=== PATIENT | male | born 1955 | race Caucasian/White ===

== ENCOUNTER 2017-12-17 16:10 | Emergency (ER) | payer MEDICAID, SELFPAY ==
[2017-12-17 16:12] VITALS: BP 134/71; PULSE 62; RESP 18; TEMP 36.6; O2SAT 98; BMI 34.9
--- NOTE | 2017-12-17 16:16 | ED.DCSUM_ITS ---
- ER Visit Summary Date of Service: 12/17/17 Chief Complaint: Right ankle pain/left buttock pain History of Present Illness: The patient is a 62 M who presents with the above symptoms. The patient was mowing his yard when he stepped in a hole. He states that his right foot went down into a hole and twisted on the way down. He also landed on his left buttock. He called EMS to help him get out. He has a history of dropfoot on the right. He was able to ambulate to the ambulance Physical ExaminatioVital signs reviewed. Right ankle exam reveals no tenderness to palpation. He has no swelling. He has full range of motion with pain. He does have some left buttock tenderness to palpation. No bony tenderness. He did ambulate from the EMS cot to the bed without difficulties. Test Results: Right ankle x-ray reveals a sprain but no fractures Emergency Department Course and Treatment: Patient was given Tylenol. I do not feel he requires x-rays of his buttock area because this is muscular in nature. His ankle has no fractures. He was able to ambulate on his own. He will continue Tylenol and ice at home. Treatment Plan: [] Disposition: Discharge Impression: Right ankle sprain, gluteal contusion This note was generated with Droid system master dictation software. It may contain incorrect words, spelling, and punctuation that were not noted in review of the chart prior to signing ED Disposition - Plan for ED Patient: Chief Complaint: Lower Extremity Injury Referrals: Khang Mendoza MD [Primary Care Provider] -
[2017-12-17] MEDS: Acetaminophen 500 MG Tablet 1000 MG PO (16:17)
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
--- NOTE | 2017-12-17 17:17 | ED.DEP ---
ED Disposition - Plan for ED Patient: Disposition: Home or Assisted Living Chief Complaint: Lower Extremity Injury Instructions: ED Sprain Ankle W X Ray Referrals: Khang Mendoza MD [Primary Care Provider] -
[2017-12-17 17:27] VITALS: RESP 18
== END 2017-12-17 17:28 | disposition home or self-care (01) ==
PROVIDERS: Emergency Provider Emergency Medicine; Family Provider Family Medicine; PCP Family Medicine
DX: S93.401A Sprain of unspecified ligament of right ankle, initial encounter (principal); S30.0XXA Contusion of lower back and pelvis, initial encounter; E11.9 Type 2 diabetes mellitus without complications; I10 Essential (primary) hypertension; Z79.84 Long term (current) use of oral hypoglycemic drugs; Z79.899 Other long term (current) drug therapy; X50.1XXA Overexertion from prolonged static or awkward postures, initial encounter; Y93.H2 Activity, gardening and landscaping; Y92.007 Garden or yard of unspecified non-institutional (private) residence as the place of occurrence of the external cause; Y99.8 Other external cause status
CPT/HCPCS: 73610; 99284

== ENCOUNTER 2018-06-02 20:42 | Emergency (ER) | payer MEDICAID, SELFPAY ==
[2018-06-02 21:08] VITALS: BP 106/60; PULSE 67; RESP 16; TEMP 36.7; O2SAT 97; BMI 34.9
[2018-06-02] MEDS: Ketorolac 30 MG/ML Syringe IM (22:22)
--- NOTE | 2018-06-02 22:45 | ED.VIS.BACK ---
History of Present Illness Chief Complaint: Back Informant: Patient Onset: Weeks - 3 Context: Gradual Onset Narrative: Patient presenting secondary to back pain. Patient reports that he has a long-standing history of back pain, and has a chronic right-sided foot drop secondary to this. Patient states that he has had a gradual onset of worsening pain. Is located in his lower back. There is some radiation down the leg. Patient denies any bowel or bladder incontinence fevers nausea vomiting numbness or new weakness. Patient denies any recent injections or surgeries. Patient takes gabapentin for this, seems to feel that this is not helping. Review of systems otherwise negative. Past Medical History - Allergies and Home Meds Allergies/Adverse Reactions: Allergies No Known Allergies Allergy (Verified 06/02/18 21:09) Primary Care Physician: Diandra Noel NP-C [Primary Care Provider] - Smoking Status: Current some day smoker Review of Systems All systems negative except as indicated Musculoskeletal: Reports: Back pain Neurological: Reports: Weakness - At baseline Physical Exam Vital Signs/Narrative: Vital Signs Temp Pulse Resp BP Pulse Ox 06/02/18 21:08 98.1 F 67 16 106/60 97 General: Well nourished, Well developed Head: Normocephalic, Atraumatic Eyes: Perrl, EOMI ENT: Moist mucous membranes, No rhinorrhea Neck: Supple, Nontender Cardiovascular: Regular rate, Regular rhythm, No murmurs, - - 2+ radial, 2+ DP pulses bilaterally symmetric Respiratory: No distress, CTA bilaterally, Chest nontender Abdomen: Soft, Nontender, Nondistended, Normal bowel sounds. Negative for: Pulsatile mass Back: - - Minimal right sided paraspinal tenderness, no midline tenderness. Straight leg raise negative bilaterally Extremeties: Nontender, No edema Skin: Normal color, No rash Neuro: Alert - 5 out of 5 strength at the hip knee and foot, right sided foot drop which is the patient's baseline, normal sensation over all dermatomes., Oriented, Normal Strength, Normal Sensation, Normal DTR, Normal Gait Reflexes: Right Patellar, Right Achilles. Negative for: Right Clonus, Left Clonus Diagnostic/Tx/Re-eval - Medical Decision Making Patient presented secondary to back pain. Patient does have foot drop on the right but this is chronic. Patient was given Toradol and Flexeril. Repeat evaluation shows significant improvement in the patient able to ambulate. There is no red flag signs or symptoms at this point, I do not believe that he requires neuroimaging or further work-up. Patient was discharged with follow-up with his primary care physician. Disposition: Home ED Disposition - Plan for ED Patient: Disposition: Home or Assisted Living Diagnosis: Acute exacerbation of chronic low back pain Instructions: ED Neck Back Pain General Referrals: Diandra Noel, LOADER ENGINEER-C [Primary Care Provider] - As Needed
== END 2018-06-02 23:19 | disposition home or self-care (01) ==
PROVIDERS: Emergency Provider Emergency Medicine; Family Provider Nurse Practitioner Family; PCP Nurse Practitioner Family
DX: G89.29 Other chronic pain (principal); M54.5 Low back pain; F17.200 Nicotine dependence, unspecified, uncomplicated
CPT/HCPCS: 96372; 99284

== ENCOUNTER 2018-11-08 14:20 | Emergency (ER) | payer MEDICAID, SELFPAY ==
[2018-11-08] VITALS (7 sets, daily range): BP systolic 130–145; BP diastolic 70–89; PULSE 68–71; RESP 16–18; TEMP 36.7; O2SAT 96–98; BMI 34.2
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
[2018-11-08 15:39] LABS: Absolute Lymphocyte Count 0.61 X10^3/uL (0.83-4.51); Absolute Neutrophil Count 4.2 X10^3/uL (2.0-7.7); Basophil# 0.05 X10^3/uL; Basophil% 0.8 % (0-1); Eosinophil# 0.06 X10^3/uL; Hematocrit 40.7 % (40-54); Hemoglobin 13.7 g/dL (13.0-16.5); Lymphocyte # 0.61 X10^3/ul (4.0); Lymphocyte % 10.2 % (19-41); Mean Corp Hgb Conc 33.7 g/dL (32-36); Mean Corpuscular Hgb 33.6 pg (27.0-32.0); Mean Corpuscular Volume 99.8 fL (80-94); Mean Platelet Vol. 11.4 fl (6.2-12.0); Monocyte# 1.05 X10^3/uL; Monocyte% 17.6 % (0-10); NRBC Flagged by Analyzer 0 % (0-5); Neutrophil # 4.18 X10^3/uL (2.7-7.7); Neutrophil % 69.9 % (47-70); Platelet Count 65 K/mm3 (150-450); RBC Distribution Width CV 12.8 % (11.6-14.6); RBC Distribution Width SD 47.3 fl (35.1-43.9); Red Blood Count 4.08 M/mm3 (4.6-6.2)
[2018-11-08 15:43] LABS: Anion Gap 9 (5-15); BUN 12 mg/dL (7-18); BUN/Creat Ratio 11.4 RATIO (10-20); Calcium,Total 9.2 mg/dL (8.5-10.1); Chloride 99 mmol/L (98-107); Creatinine, Serum 1.05 mg/dL (0.70-1.30); EST Glomerular Filtration Rate 76 mL/min (>60); Est Glom Filt Rate - Afr Amer 91 mL/min (>60); Estimated Creatinine Clearance 68.76 ml/min; Glucose 201 mg/dL (74-106); Potassium 4.1 mmol/L (3.5-5.1); Sodium Level 132 mmol/L (136-145)
--- NOTE | 2018-11-08 19:54 | ED.RN ---
PT STATES THROAT IS FEELING A LITTLE BETTER, STILL SORE. VOICE REMAINS HOARSE, VITAL SIGNS STABLE.
--- NOTE | 2018-11-08 20:13 | ED.RN ---
NURSE TO NURSE REPORT CALLED TO [facility] ED TO CARMEL ESPINO. ASKED TO SPEAK TO DR STEWART TO UPDATE PER DR STEWART REQUEST. 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
== END 2018-11-08 20:59 | disposition short-term general hospital (02) ==
PROVIDERS: Emergency Provider Emergency Medicine; Family Provider Nurse Practitioner Family; PCP Nurse Practitioner Family
DX: S10.93XA Contusion of unspecified part of neck, initial encounter (principal); E11.9 Type 2 diabetes mellitus without complications; I10 Essential (primary) hypertension; F17.200 Nicotine dependence, unspecified, uncomplicated; Y04.8XXA Assault by other bodily force, initial encounter; Y93.89 Activity, other specified; Y92.009 Unspecified place in unspecified non-institutional (private) residence as the place of occurrence of the external cause; Y99.8 Other external cause status
CPT/HCPCS: 70491; 71045; 80048; 85025; 99284; Q9967; A4216

== ENCOUNTER 2018-12-06 17:14 | Emergency (ER) | payer MEDICAID, SELFPAY ==
[2018-11-08 14:23] VITALS: BMI 34.2
[2018-12-06 17:16] VITALS: BP 121/83; PULSE 72; RESP 19; TEMP 37; O2SAT 97; BMI 34.2
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
--- NOTE | 2018-12-06 17:29 | EKG12_ITS ---
Test Reason : HEADACHE Blood Pressure : / mmHG Vent. Rate : 068 BPM Atrial Rate : 068 BPM P-R Int : 144 ms QRS Dur : 084 ms QT Int : 420 ms P-R-T Axes : 021 -05 014 degrees QTc Int : 446 ms Normal sinus rhythm Normal ECG Confirmed by KARLA ADAMS ([id number]), senior technical editor SVITLANA NORTH ([id number]) on 12/13/2018 9:03:05 AM Referred By: ARLEEN Confirmed By:KARLA ADAMS
[2018-12-06] MEDS: 0.9% Normal Saline 1,000 ML 150 ML IV (17:47)
[2018-12-06 18:10] LABS: Anion Gap 11 (5-15); BUN 12 mg/dL (7-18); BUN/Creat Ratio 14.2 RATIO (10-20); Calcium,Total 8.8 mg/dL (8.5-10.1); Chloride 98 mmol/L (98-107); Creatinine, Serum 0.85 mg/dL (0.70-1.30); EST Glomerular Filtration Rate 97 mL/min (>60); Est Glom Filt Rate - Afr Amer 117 mL/min (>60); Estimated Creatinine Clearance 84.94 ml/min; Glucose 120 mg/dL (74-106); Potassium 3.5 mmol/L (3.5-5.1); Sodium Level 132 mmol/L (136-145)
[2018-12-06 18:19] LABS: Absolute Lymphocyte Count 0.89 X10^3/uL (0.83-4.51); Absolute Neutrophil Count 4.9 X10^3/uL (2.0-7.7); Basophil# 0.05 X10^3/uL; Basophil% 0.7 % (0-1); Eosinophil# 0.13 X10^3/uL; Eosinophils% 1.8 % (0-5); Hematocrit 36.7 % (40-54); Hemoglobin 12.5 g/dL (13.0-16.5); Lymphocyte # 0.89 X10^3/ul (4.0); Lymphocyte % 12.4 % (19-41); Mean Corp Hgb Conc 34.1 g/dL (32-36); Mean Corpuscular Volume 99.7 fL (80-94); Mean Platelet Vol. 11.5 fl (6.2-12.0); Monocyte# 1.16 X10^3/uL; Monocyte% 16.2 % (0-10); NRBC Flagged by Analyzer 0 % (0-5); Neutrophil # 4.91 X10^3/uL (2.7-7.7); Neutrophil % 68.5 % (47-70); Platelet Count 68 K/mm3 (150-450); RBC Distribution Width CV 13.1 % (11.6-14.6); RBC Distribution Width SD 48.3 fl (35.1-43.9); Red Blood Count 3.68 M/mm3 (4.6-6.2); White Blood Count 7.2 K/mm3 (4.4-11.0)
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
[2018-12-06 18:42] LABS: Salicylate < 1.7 mg/dL (2.8-20.0)
[2018-12-06] MEDS: Acetaminophen 325 MG Tablet 650 MG PO (18:57)
--- NOTE | 2018-12-06 18:58 | ED.DEP ---
ED Disposition - Plan for ED Patient: Instructions: HEADACHE, Unspecified, Tinnitus (Ringing in the Ears), Alcohol Intoxication Referrals: Diandra Noel NP-Valdemar [Primary Care Provider] - Kiet Johnson MD [STAFF PHYSICIAN] - 3-5 Days
--- NOTE | 2018-12-06 18:59 | ED.RN ---
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
[2018-12-06 19:01] VITALS: BP 123/82; PULSE 74; RESP 20; O2SAT 97
--- NOTE | 2018-12-06 19:48 | ED.RN ---
brother agreed to stay with pt for the next 4 hours.
== END 2018-12-06 19:51 | disposition home or self-care (01) ==
LOC: ED 17:35
PROVIDERS: Emergency Provider Emergency Medicine; Family Provider Nurse Practitioner Family; PCP Nurse Practitioner Family
DX: R51 Headache (principal); F10.129 Alcohol abuse with intoxication, unspecified; H93.13 Tinnitus, bilateral; E11.9 Type 2 diabetes mellitus without complications; I10 Essential (primary) hypertension; K21.9 Gastro-esophageal reflux disease without esophagitis; Z72.0 Tobacco use; Z79.4 Long term (current) use of insulin; Z79.899 Other long term (current) drug therapy
CPT/HCPCS: 70450; 80048; 80320; 80329; 84484; 85025; 93005; 96360; 96361; 99285; G0480

== ENCOUNTER 2018-12-30 10:24 | Emergency (ER) | payer MEDICAID, SELFPAY ==
[2018-12-30 10:25] VITALS: BP 158/75; PULSE 69; RESP 16; TEMP 36.7; O2SAT 97; BMI 33.5
[2018-12-30 10:27] VITALS: BP 158/75; PULSE 69; RESP 16; TEMP 36.7; O2SAT 97
[2018-12-30 10:51] VITALS: O2SAT 96
[2018-12-30] MEDS: predniSONE 20 MG Tablet 60 MG PO (11:09)
[2018-12-30 11:17] VITALS: PULSE 68; RESP 20; O2SAT 96
[2018-12-30] MEDS: Ipratropium/Albuterol Sulfate 3 ML AMPUL.NEB INHALATION (11:17)
--- NOTE | 2018-12-30 11:20 | RAD_ITS ---
STUDY: X-RAY CHEST REASON FOR EXAM: Male, 63 years old. Two-week history of cough. TECHNIQUE: PA and lateral views of the chest. COMPARISON: Comparison is made with prior study dated November 08, 2018. FINDINGS: Mild increased markings at the lung bases suggestive of bibasilar atelectasis. There is no demonstrated pleural abnormality. Normal size heart. Normal mediastinum and compa. Normal visualized pulmonary arteries. There is atherosclerotic calcification of the aortic arch with tortuosity. There are diffuse degenerative changes of the visualized thoracic spine. Normal visualized ribs, clavicles, and shoulders. There is no demonstrated abnormality of the visualized soft tissue structures of the upper abdomen. RAD/Chest PA and Lateral IMPRESSION: Mild degree of increased linear markings at the lung bases suggestive of linear atelectasis. Electronically Signed: Mak Scott, at 12:34 EST , Service support ,
--- NOTE | 2018-12-30 11:52 | ED.VISSUMM ---
- ER Visit Summary Date of Service: 12/30/18 Chief Complaint: Cough and shortness of breath History of Present Illness: The patient is a 63 M history of diabetes and hypertension. Patient never been diagnosed with COPD but is a 30+ pack year history of smoking. States the last 2 weeks he had a cough of clear phlegm and some wheezing. Denies chest pain. Subjectively he has had a fever and chills. No vomiting or diarrhea. No leg pain or swelling. No hemoptysis. Physical Examination: Older male vital signs stable afebrile pulse ox 97% on room air no signs of hypoxia. HEENT exam unremarkable. Neck nontender. Lungs dry cough with expiratory wheezing. No rales or rhonchi. No distress. Equal symmetrical. Heart regular rhythm no murmur. Abdomen soft nontender. Extremities moves all 4. Neurovascularly intact motor. Calves are nontender without edema. Neurologically is awake and alert. Test Results: CXR shows chronic changes consistent with COPD but no acute infiltrate read by myself. I did go over the x-ray with patient. He was AP and lateral 2 views. Emergency Department Course and Treatment: Patient treated with DuoNeb aerosol and prednisone. On repeat exam at 1151 he feels better. His wheezing is resolved. Treatment Plan: Prednisone 40 mrem a day for 7 days. I do not feel he needs any antibiotics. Also an inhaler. Follow-up with pulse ox in clinic if not improving. Disposition: Discharge Impression: Acute bronchitis New onset newly diagnosed exacerbation COPD This note was generated with eeGeo dictation software. It may contain incorrect words, spelling, and punctuation that were not noted in review of the chart prior to signing ED Disposition - Plan for ED Patient: Referrals: Diandra Noel, FOUNDATION RELATIONS DIRECTOR-C [Primary Care Provider] -
--- NOTE | 2018-12-30 11:56 | ED.DEP ---
ED Disposition - Plan for ED Patient: Disposition: Home or Assisted Living Instructions: BRONCHITIS, No Antibiotic (Adult), Copd Flare Prescriptions: predniSONE tablet 40 mg PO DAILY 7 Days #7 tab Prescription Printed Albuterol Sulfate [Proventil Hfa] 6.7 gm IH 4X/DAY PRN PRN #1 [email or web address] PRN Reason: Wheezing Prescription Printed Referrals: Diandra Noel, SALESPERSON WOMEN'S DRESSES-C [Primary Care Provider] - 3-5 Days if not improving Additional Instructions: Smoking !! Prednisone 40 miles a day for 1 week. Is a decrease inflammation in your lungs and the wheezing. Also uses inhaler as needed for wheezing and shortness of breath. 1 to 2 puffs every 4-6 hours as needed. Follow-up with your primary care provider if not improving. Return if worse.
== END 2018-12-30 12:14 | disposition home or self-care (01) ==
PROVIDERS: Emergency Provider Emergency Medicine; Family Provider Nurse Practitioner Family; PCP Nurse Practitioner Family
DX: J44.1 Chronic obstructive pulmonary disease with (acute) exacerbation (principal); J44.0 Chronic obstructive pulmonary disease with (acute) lower respiratory infection; E11.9 Type 2 diabetes mellitus without complications; I10 Essential (primary) hypertension; Z79.899 Other long term (current) drug therapy; Z79.4 Long term (current) use of insulin; F17.200 Nicotine dependence, unspecified, uncomplicated
CPT/HCPCS: 71046; 94640; 99251; 99282; G0463

== ENCOUNTER 2019-06-01 18:05 | Inpatient (IN) | payer MEDICARE, MEDICAID, SELFPAY ==
[2019-06-01] VITALS (8 sets, daily range): BP systolic 97–126; BP diastolic 52–98; PULSE 58–68; RESP 18; TEMP 36.4–36.8; O2SAT 96–99; BMI 34.6; BMI 33.0; BMI 33.1
--- NOTE | 2019-06-01 18:10 | EKG12_ITS ---
Test Reason : SYNCOPE Blood Pressure : / mmHG Vent. Rate : 060 BPM Atrial Rate : 060 BPM P-R Int : 152 ms QRS Dur : 088 ms QT Int : 446 ms P-R-T Axes : 043 -03 010 degrees QTc Int : 446 ms Sinus rhythm with occasional Premature ventricular complexes Otherwise normal ECG Confirmed by ESVIN BURKS, ANTONIA ([id number]), features editor WAYLON MATIAS ([id number]) on 06/06/2019 10:56:28 AM Referred By: Alli Mansfield Confirmed By:RADHA MCALLISTER MD
--- NOTE | 2019-06-01 18:26 | ED.VISSUMM ---
- ER Visit Summary Date of Service: 06/01/19 Chief Complaint: Passed out and fell History of Present Illness: The patient is a 64 M history of diabetes, hypertension high cholesterol. States he is on insulin. He states about a month friends. Today he was walking to his refrigerator when he went to open up he passed out fell striking his face on the refrigerator and in the floor. Laceration to his upper lip. Denies other injuries. Prior to the fall he said he felt fine. He denies any headache, neck pain, chest pain or shortness of breath. He is not recently been ill. He denies any nausea, vomiting or diarrhea. No melena. Tetanus is up-to-date within the last 4 years. Physical Examination: Older male no acute distress vital signs are stable afebrile. His initial blood pressure is 107/68. He does not look septic or toxic. He is in no distress. H EENT exam pupils round reactive light. He is a laceration to his upper lip in the midline and is through and through to the oral surface. This will need to be repaired. There is small amount of oozing of blood. He has no dentition. Scalp is nontender without signs of trauma. C-spine nontender. Lungs clear to auscultation bilaterally. Heart regular rhythm no murmur. Chest wall nontender. Abdomen soft nontender. Extremities moves all 4. Nontender. No edema. No deformities. Hips are nontender. No shortening or rotation. Back nontender. Neurologically is awake and alert with no focal motor deficits. Test Results: Chest x-ray portable 1 view shows no acute abnormality read both by myself and radiologist. EKG sinus rhythm rate of 60 with PVCs. No ischemia. No dysrhythmia. CBC white count of 4. Hemoglobin 13. Low platelet count of 67 which is his baseline. Electrolytes show sodium 129 his last was 132. Gap of 8. Creatinine is 0.9. Glucose of 139. Troponin normal. Emergency Department Course and Treatment: Older male with syncopal event. Will undergo cardiac work-up. With orthostatic vital signs. His facial lip laceration will need to be repaired. Procedure note: Upper lip laceration. Through and through. Locally anesthetized with lidocaine. Washed with saline. Explored. Closed using 5-0 rapidly absorbing Vicryl. The upper lip skin laceration was about 1.5 cm and I used 2 separate rounded 5-0 Vicryl sutures. Good closure and hemostasis was obtained. The inside laceration of the lip was about 3 cm and took 4 simple interrupted 5-0 Vicryl sutures. Good hemostasis wound closure obtained. Patient tolerated procedure well. Treatment Plan: I spoke to the hospitalist about observation PCU admission. Disposition: Admission Impression: Acute syncope of uncertain etiology Upper lip laceration with ER repair. Laceration repairs x2. Laceration #1 1.5 cm. Laceration #2 3 cm. History of insulin-dependent diabetes,, hypertension and high cholesterol History of frequent alcohol use This note was generated with [employer] dictation software. It may contain incorrect words, spelling, and punctuation that were not noted in review of the chart prior to signing ED Disposition - Plan for ED Patient: Referrals: Diandra Noel, PRODUCT SAFETY COORDINATOR-C [Primary Care Provider] -
[2019-06-01 18:32] LABS: Absolute Lymphocyte Count 0.59 X10^3/uL (0.83-4.51); Absolute Neutrophil Count 3.4 X10^3/uL (2.0-7.7); Basophil# 0.03 X10^3/uL; Basophil% 0.6 % (0-1); Eosinophil# 0.09 X10^3/uL; Eosinophils% 1.9 % (0-5); Hematocrit 39.3 % (40-54); Hemoglobin 13.1 g/dL (13.0-16.5); Lymphocyte # 0.59 X10^3/ul (4.0); Lymphocyte % 12.1 % (19-41); Mean Corp Hgb Conc 33.3 g/dL (32-36); Mean Corpuscular Hgb 33.2 pg (27.0-32.0); Mean Corpuscular Volume 99.7 fL (80-94); Mean Platelet Vol. 11.3 fl (6.2-12.0); Monocyte# 0.73 X10^3/uL; NRBC Flagged by Analyzer 0 % (0-5); POSITIVE COUNT YES; POSITIVE DIFFERENTIAL YES; Platelet Count 67 K/mm3 (150-450); RBC Distribution Width CV 12.5 % (11.6-14.6); RBC Distribution Width SD 46.1 fl (35.1-43.9); Red Blood Count 3.94 M/mm3 (4.6-6.2); White Blood Count 4.9 K/mm3 (4.4-11.0)
[2019-06-01 18:34] LABS: Differential Indicated SCAN CRITERIA MET
--- NOTE | 2019-06-01 18:35 | RAD_ITS ---
STUDY: X-RAY CHEST REASON FOR EXAM: Male, 64 years old. snycope TECHNIQUE: Single frontal view of the chest. COMPARISON: December 30, 2018 FINDINGS: Possible developing bibasilar infiltrates or subsegmental atelectasis. There is no demonstrated pleural abnormality. Normal size heart. Normal mediastinum and compa. Normal visualized pulmonary arteries. Normal visualized aortic arch and descending thoracic aorta. Normal visualized thoracic spine. Normal visualized ribs, clavicles, and shoulders. There is no demonstrated abnormality of the visualized soft tissue structures of the upper abdomen. RAD/Chest 1 View (Portable) IMPRESSION: Possible developing bibasilar infiltrates Electronically Signed: Deion Crow MD at 18:55 EDT , Service support ,
[2019-06-01 18:49] LABS: Anion Gap 8 (5-15); BUN 15 mg/dL (7-18); BUN/Creat Ratio 15.6 RATIO (10-20); Calcium,Total 9.1 mg/dL (8.5-10.1); Chloride 96 mmol/L (98-107); Creatinine, Serum 0.96 mg/dL (0.70-1.30); EST Glomerular Filtration Rate 83 mL/min (>60); Est Glom Filt Rate - Afr Amer 101 mL/min (>60); Estimated Creatinine Clearance 74.22 ml/min; Glucose 139 mg/dL (74-106); Potassium 4.1 mmol/L (3.5-5.1); Sodium Level 129 mmol/L (136-145)
[2019-06-01 19:47] LABS: Differential Comment SCANNED
--- NOTE | 2019-06-01 21:10 | HP.PCM_ITS ---
Problem List (1) Syncope and collapse Status: Acute History of Present Illness Date of Admission: 06/01/19 Chief Complaint: SYNCOPE AND COLLAPSE The patient is a 64 year old M with a significant history of diabetes mellitus and alcoholism who presented to emergency department with syncope. Patient was walking towards the fridge and he lost consciousness and fell. He sustained injuries to his forehead; his left elbow and to his lips. His lips was sutured with absorbable sutures at the emergency department. Patient reported that in the past week he has had 2 other syncopal episodes with falls and injuries. Past Medical History Medical History: Medical History (Last Reviewed 06/01/19 @ 23:[address] Alli Mansfield MD) Alcoholism F10.20 Allergies metformin Adverse Reaction (Verified 12/30/18 10:28) EDEMA Home Medications: Ambulatory Orders Medication Instructions Recorded Doxazosin Mesylate 8 mg PO QHS 10/16/15 Fluoxetine [Prozac] 20 mg PO DAILY 10/16/15 Gabapentin [Neurontin] 300 mg PO TID 10/16/15 Glimepiride [Amaryl] 4 mg PO DAILY 10/16/15 Lasix 20 mg PO DAILY 10/16/15 Propranolol HCl [Propranolol HCl 80 mg PO DAILY 10/16/15 ER] Ranitidine [Zantac] 300 mg PO QHS 10/16/15 Spironolactone [Aldactone] 50 mg PO BID 10/16/15 Insulin Glargine,Hum.rec.anlog 30 unit SQ QHS 12/06/18 [Basaglar Kwikpen U-100] Albuterol Sulfate [Proventil Hfa] 6.7 gm IH 4X/DAY PRN PRN #1 12/30/18 hfa.aer.ad Surgical History: herniorrhaphy Smoking Status: Current some day smoker Alcohol: Heavy - *Family History Maternal History Items: - - The lower extremities of his mother was blue. Paternal History Items: Heart Disease Review of Systems Constitutional: Denies: Chills, Fever, Weight Change HEENT: Denies: Head Aches, Sinus Congestion, Sinus Drainage Cardiovascular: Reports: Syncope. Denies: Chest Pain, Palpitations Respiratory: Denies: Cough, Shortness of breath at rest, Sputum production Gastrointestinal: Denies: Abdominal Pain, Nausea, Vomiting Genitourinary: Denies: Dysuria Musculoskeletal: Denies: Joint Pain, Joint Tenderness Skin: Reports: Wounds - Elbow; lips; forehead; upper nasal bridge.. Denies: Rash Neurological: Denies: Numbness, Tingling, Focal weakness Psychiatric: Denies: Anxiety, Depression, Homicidal Ideations, Suicidal Ideations Hematologic/ Lymphatic: Denies: Easy Bruising, Easy Bleeding VTE Information - Inpt Only VTE Present on Admission: No VTE Mechan Device Prophylaxis: SCD's VTE Pharm Prophylaxis ordered?: No Patient Problems: Active and Suspected Problems (Last Reviewed 06/01/19 @ 23:[address] Alli Mansfield MD) Syncope and collapse (Acute) - Physical Exam Vitals/I&O's: Vital Signs Temp Pulse Resp BP Pulse Ox 97.5 F L 68 18 124/52 H 98 06/01/19 20:17 06/01/19 20:44 06/01/19 20:44 06/01/19 20:44 06/01/19 20:17 Oxygen Delivery Method Room Air Weight: 103.3 kg Body Mass Index (BMI) 34.6 General: Alert, Oriented x3, Cooperative HEENT: Atraumatic, PERRLA, EOMI, Normocephalic Neck: Supple, No JVD, Negative Carotid Bruits Lungs: Clear to auscultation, Normal air movement Cardiovascular: Regular rate, No murmurs Abdomen: Bowel Sounds Present, Soft, Non Tender Extremities: No edema, Capillary Refill Less than 3 Seconds Skin: Excoriated - Forehead; upper nasal bridge; right elbow area. Sutures to lips. Musculoskeletal: No Tenderness to Palpation of Joints or Extremities Neurological: Cranial nerves II-XII grossly intact Psych/Mental Status: Normal Affect, Appropriate Laboratory Results 06/01/19 18:20: WBC 4.9, RBC 3.94 L, Hgb 13.1, Hct 39.3 L, MCV 99.7 H, MCH 33.2 H, MCHC 33.3, RDW Std Deviation 46.1 H, RDW Coeff of Shaka 12.5, Plt Count 67 L, MPV 11.3, Immature Gran % (Auto) 0.400, Neut % (Auto) 70.0, Lymph % (Auto) 12.1 L, [place] % (Auto) 15.0 H, Eos % (Auto) 1.9, Baso % (Auto) 0.6, Absolute Neuts (auto) 3.4, Absolute Lymphs (auto) 0.59 L, Nucleated RBC % 0, Differential Comment SCANNED 06/01/19 18:20: Sodium 129 L, Potassium 4.1, Chloride 96 L, Carbon Dioxide 25.0, Anion Gap 8, BUN 15, Creatinine 0.96, Estim Creat Clear Calc 74.22, Est GFR (MDRD) Af Amer 101, Est GFR (MDRD) Non-Af 83, BUN/Creatinine Ratio 15.6, Glucose 139 H, Calcium 9.1, Troponin I < 0.015 Assessment/Plan All Active Problems (Last Reviewed 06/01/19 @ 23:[address] Alli Mansfield MD) Syncope and collapse (Acute) The patient is a 64 year old M with a significant history of diabetes mellitus and alcoholism who presented to emergency department with syncope and collapse. Syncope and collapse EKG shows sinus rhythm with occasional PVCs. Get an echocardiogram. Placed on a progressive care unit on telemetry. Orthostatic vitals. Cannot rule out alcohol intoxication precipitating his symptoms. Polysporin ointment to excoriated areas. Alcohol abuse Patient drinks heavily. Put on CIWA protocol with multivitamin; thiamine and folic acid. Ativan as needed. Counseled. Hyponatremia On presentation his sodium was 129. Review of old records show that his sodium in 2019 was 132. On presentation his chloride was 96. Like secondary to beer potomania. Counselled. Trend BMP. Diabetes mellitus Patient with hyperglycemia on presentation. Accu-Chek QA [facility] with correction scale insulin ordered. DVT SCD in the setting of recent injuries. OBSV E&M: [id number] Initial observation care L3
--- NOTE | 2019-06-01 22:34 | ECHOD_ITS ---
Reason For Study: SYNCOPE/NEAR SYNCOPE Procedure This was a 2D Doppler, Color Flow transthoracic echocardiogram. Exam performed portable in patient room. Left Ventricle Normal LV size. The estimated ejection fraction is 60 %. Unable to assess diastolic dysfunction. No regional wall motion abnormalities noted. Right Ventricle Normal RV size. Normal systolic function. Atria The left atrium is moderately enlarged. Normal right atrium. No doppler evidence for ASD. Mitral Valve There is moderate to severe mitral annular calcification. There is no mitral valve stenosis. Trivial mitral valve insufficiency. Tricuspid Valve There is no tricuspid stenosis. Trivial tricuspid valve insufficiency. Pulmonary artery systolic pressure is 30-35 mmHg. Aortic Valve Trisinus/trileaflet aortic valve. There is no aortic stenosis. No aortic valve insufficiency. Pulmonic Valve There is no pulmonic valvular stenosis. No pulmonic valve insufficiency. Great Vessels Normal aortic root. Pericardium/Pleural No pericardial effusion. MMode/2D Measurements & Calculations LVIDd: 4.3 cm IVSd: 1.00 cm Ao root diam: 3.3 cm LVIDs: 2.5 cm LVPWd: 1.0 cm LA dimension: 3.9 cm RVDd: 3.2 cm FS: 42.0 % LAV(MOD-bp): 105.8 ml LA A4 area: 29.1 cm2 RA A4 area: 18.0 cm2 LAV(MOD-bp) Indexed: 49.0 ml/m2 LAV(MOD-sp2): 108.2 ml LAV(MOD-sp4): 101.0 ml Time Measurements MV dec time: 0.26 sec Doppler Measurements & Calculations MV E max sylvain: 120.7 cm/sec Lat Peak E' Sylvain: 8.7 cm/sec Med Peak E' Sylvain: 6.5 cm/sec MV A max sylvain: 125.4 cm/sec E/E' lat: 13.9 E/E' med: 18.4 MV E/A: 0.96 Ao V2 max: 147.4 cm/sec LV V1 max: 123.3 cm/sec PA V2 max: 92.7 cm/sec Ao max P.7 mmHg LV V1 max P.1 mmHg TR max sylvain: 248.8 cm/sec TR max P.8 mmHg Interpretation Summary The estimated ejection fraction is 60 %. Unable to assess diastolic dysfunction. The left atrium is moderately enlarged. Trivial mitral valve insufficiency. Pulmonary artery systolic pressure is 30-35 mmHg. Ordering Physician: Alli Mansfield Referring Physician: Diandra Noel Performed By: Giuliana Conde, RDCS, RVT
[2019-06-01 23:35] LABS: Bedside Glucose 110 mg/dL (70-110)
[2019-06-01] MEDS: Acetaminophen 325 MG Tablet 650 MG PO (23:38)
[2019-06-01] MEDS: BACITRACIN/POLYMYXIN B 15 GM Tube 1 APPLIC TOPICAL (23:45)
[2019-06-02] VITALS (12 sets, daily range): BP systolic 97–128; BP diastolic 55–70; PULSE 58–66; RESP 16–18; TEMP 36.6–36.9; O2SAT 93–98
[2019-06-02 06:51] LABS: Absolute Lymphocyte Count 0.64 X10^3/uL (0.83-4.51); Absolute Neutrophil Count 2.6 X10^3/uL (2.0-7.7); Basophil# 0.04 X10^3/uL; Eosinophil# 0.08 X10^3/uL; Eosinophils% 1.9 % (0-5); Hematocrit 36.6 % (40-54); Hemoglobin 12.2 g/dL (13.0-16.5); Lymphocyte # 0.64 X10^3/ul (4.0); Lymphocyte % 15.6 % (19-41); Mean Corp Hgb Conc 33.3 g/dL (32-36); Mean Corpuscular Volume 98.9 fL (80-94); Mean Platelet Vol. 11.7 fl (6.2-12.0); Monocyte# 0.76 X10^3/uL; Monocyte% 18.5 % (0-10); NRBC Flagged by Analyzer 0 % (0-5); Neutrophil # 2.56 X10^3/uL (2.7-7.7); Neutrophil % 62.3 % (47-70); POSITIVE COUNT YES; Platelet Count 57 K/mm3 (150-450); RBC Distribution Width CV 12.7 % (11.6-14.6); RBC Distribution Width SD 46.1 fl (35.1-43.9); White Blood Count 4.1 K/mm3 (4.4-11.0)
[2019-06-02] MEDS: Acetaminophen 325 MG Tablet 650 MG PO ×2 (06:51→20:11)
[2019-06-02 06:57] LABS: Differential Indicated SCAN CRITERIA MET
[2019-06-02 07:10] LABS: Anion Gap 6 (5-15); BUN 14 mg/dL (7-18); BUN/Creat Ratio 16.7 RATIO (10-20); Calcium,Total 8.8 mg/dL (8.5-10.1); Chloride 99 mmol/L (98-107); Creatinine, Serum 0.84 mg/dL (0.70-1.30); EST Glomerular Filtration Rate 97 mL/min (>60); Est Glom Filt Rate - Afr Amer 118 mL/min (>60); Estimated Creatinine Clearance 84.82 ml/min; Glucose 69 mg/dL (74-106); Potassium 3.9 mmol/L (3.5-5.1); Sodium Level 133 mmol/L (136-145)
[2019-06-02 07:11] LABS: Bedside Glucose 97 mg/dL (70-110)
[2019-06-02 07:11] LABS: Bedside Glucose 69 mg/dL (70-110)
[2019-06-02] MEDS: Multivitamins,Ther W-Minerals Tablet 1 TABLET PO (08:26)
[2019-06-02] MEDS: Folic Acid 1 MG Tablet PO (08:26)
[2019-06-02] MEDS: Thiamine Hydrochloride 100 MG Tablet PO ×2 (08:26→17:10)
[2019-06-02 08:27] LABS: Platelet Estimate MOD DEC (ADEQ); Red Cell Morphology NORM C+C NORMAL (NORM C&C)
[2019-06-02] MEDS: BACITRACIN/POLYMYXIN B 15 GM Tube 1 APPLIC TOPICAL ×2 (08:27→21:34)
[2019-06-02] MEDS: Glucerna Shake 120 ML LIQUID PO (08:41)
[2019-06-02 10:36] LABS: AST(SGOT) 51 U/L (15-37); Alanine Aminotransfer ALT/SGPT 32 U/L (16-61); Albumin, Serum 2.7 g/dL (3.2-5.0); Alkaline Phosphatase 115 U/L (45-117); Bilirubin, Direct 0.39 mg/dL (0.00-0.30); Globulin 3.8 g/dL (2.2-4.2); Magnesium 1.3 mg/dL (1.6-2.6); Protein, Total 6.5 g/dL (6.4-8.2)
[2019-06-02] MEDS: Insulin Lispro 100 UNIT/ML INSULN.PEN SC ×3 (11:55→21:34)
[2019-06-02 12:01] LABS: Bedside Glucose 216 mg/dL (70-110)
--- NOTE | 2019-06-02 12:08 | PCM.PROGNOTE ---
<Mari Powell - Last Filed: 06/02/19 12:16> Patient Problems: Active and Suspected Problems (Last Reviewed 06/01/19 @ 23:[address] Alli Mansfield MD) Syncope and collapse (Acute) Subjective: Patient seen and examined. Denies further dizziness, lightheadedness. Denies chest pain, shortness of breath. - Physical Exam Vitals/I&O's: Vital Signs Temp Pulse Resp BP Pulse Ox 98.4 F 65 16 97/55 L 93 06/02/19 09:30 06/02/19 09:30 06/02/19 09:30 06/02/19 09:30 06/02/19 10:28 Oxygen Delivery Method Room Air Weight: 218 lb 7.649 oz Body Mass Index (BMI) 33.0 Orthostatic Vital Signs Start: 06/01/19 23:23 Freq: q24h Status: Active Protocol: Activity Type Activity Date Activity User E-Sign Co-Sign Detail Recorded Client Recorded Date Recorded By Document 06/01/19 23:23 [facility] [id number] 06/01/19 23:27 NICOLASA 06/01/19 23:23 Orthostatic Vitals Standing -Blood Pressure (90/60-120/80) 97/55 L -Extremity Use Right Arm -Pulse Rate (60-100) 68 Sitting -Blood Pressure (90/60-120/80) 108/66 -Extremity Use Right Arm -Pulse Rate (60-100) 64 Lying -Blood Pressure (90/60-120/80) 101/62 -Extremity Use Right Arm -Pulse Rate (60-100) 63 Intake and Output for Last 24 Hours 05/31/19 06/01/19 06/02/19 23:59 23:59 23:59 Intake Total 837 / 837 Output Total 1000 / 1000 Balance -163 / -163 General: Alert, Oriented x3, Cooperative HEENT: Atraumatic, PERRLA, EOMI, Normocephalic Oral: - - Medial upper lip laceration, sutures intact. Neck: Supple, No JVD, Negative Carotid Bruits Lungs: Clear to auscultation, Normal air movement Cardiovascular: Regular rate, Regular Rhythm, Normal S1, Normal S2, No murmurs Abdomen: Bowel Sounds Present, Soft, Non Tender, Non-Distended Extremities: No clubbing, No cyanosis, No edema, Capillary Refill Less than 3 Seconds Skin: No rashes, No breakdown Musculoskeletal: No Tenderness to Palpation of Joints or Extremities Neurological: Cranial nerves II-XII grossly intact, Neuro grossly intact Psych/Mental Status: Normal Affect, Appropriate Laboratory Results 06/01/19 18:20: WBC 4.9, RBC 3.94 L, Hgb 13.1, Hct 39.3 L, MCV 99.7 H, MCH 33.2 H, MCHC 33.3, RDW Std Deviation 46.1 H, RDW Coeff of Shaka 12.5, Plt Count 67 L, MPV 11.3, Immature Gran % (Auto) 0.400, Neut % (Auto) 70.0, Lymph % (Auto) 12.1 L, [place] % (Auto) 15.0 H, Eos % (Auto) 1.9, Baso % (Auto) 0.6, Absolute Neuts (auto) 3.4, Absolute Lymphs (auto) 0.59 L, Nucleated RBC % 0, Differential Comment SCANNED 06/01/19 18:20: Sodium 129 L, Potassium 4.1, Chloride 96 L, Carbon Dioxide 25.0, Anion Gap 8, BUN 15, Creatinine 0.96, Estim Creat Clear Calc 74.22, Est GFR (MDRD) Af Amer 101, Est GFR (MDRD) Non-Af 83, BUN/Creatinine Ratio 15.6, Glucose 139 H, Calcium 9.1, Troponin I < 0.015 06/01/19 18:20: Ethyl Alcohol 212.0 06/01/19 23:10: POC Glucose 110 06/02/19 06:06: WBC 4.1 L, RBC 3.70 L, Hgb 12.2 L, Hct 36.6 L, MCV 98.9 H, MCH 33.0 H, MCHC 33.3, RDW Std Deviation 46.1 H, RDW Coeff of Shaka 12.7, Plt Count 57 L, MPV 11.7, Immature Gran % (Auto) 0.700, Neut % (Auto) 62.3, Lymph % (Auto) 15.6 L, [place] % (Auto) 18.5 H, Eos % (Auto) 1.9, Baso % (Auto) 1.0, Absolute Neuts (auto) 2.6, Absolute Lymphs (auto) 0.64 L, Nucleated RBC % 0, Platelet Estimate MOD DEC, RBC Morphology NORM C+C 06/02/19 06:06: Sodium 133 L, Potassium 3.9, Chloride 99, Carbon Dioxide 28.0, Anion Gap 6, BUN 14, Creatinine 0.84, Estim Creat Clear Calc 84.82, Est GFR (MDRD) Af Amer 118, Est GFR (MDRD) Non-Af 97, BUN/Creatinine Ratio 16.7, Glucose 69 L, Calcium 8.8 06/02/19 06:06: Magnesium 1.3 L, Total Bilirubin 1.00, Direct Bilirubin 0.39 H, AST 51 H, ALT 32, Alkaline Phosphatase 115, Total Protein 6.5, Albumin 2.7 L, Globulin 3.8 06/02/19 06:42: POC Glucose 69 L 06/02/19 06:59: POC Glucose 97 06/02/19 11:54: POC Glucose 216 H Current Medications Acetaminophen (Tylenol) 650 mg PO Q6H PRN PRN PRN Reason: Pain Score 1-10/Temp > 100.7 F Last Admin: 06/02/19 06:51 Dose: 650 mg Documented by: Bacitracin/Polymyxin B Sulfate (Polysporin Ointment) 1 applic TOPICAL BID [facility]; Protocol Last Admin: 06/02/19 08:27 Dose: 1 applic Documented by: Dextrose (D50w Syringe) 0 gm IV X1 PRN; Protocol PRN Reason: Hypoglycemia Folic Acid (Folic Acid) 1 mg PO DAILY@0800 [facility] Stop: 06/04/19 08:01 Last Admin: 06/02/19 08:26 Dose: 1 mg Documented by: Glucagon () 1 mg IM .X1 PRN PRN Reason: Hypoglycemia Sodium Chloride () 250 mls @ 15 mls/hr IV .[id number] PRN PRN Reason: Saline Flush Sodium Chloride () 250 mls @ 15 mls/hr IV .[id number] PRN PRN Reason: Additional IVPB Infusion Insulin Human Lispro (Humalog Kwikpen (Bkc)) 0 unit SC [facility]; Protocol Last Admin: 06/02/19 11:55 Dose: 2 units Documented by: Lorazepam (Ativan) 2 mg PO Q2H PRN PRN; Protocol PRN Reason: CIWA score > 8 but <15 Lorazepam (Ativan) 2 mg PO UD PRN; Protocol PRN Reason: CIWA score >/=15. Lorazepam (Ativan) 2 mg IV Q2H PRN PRN; Protocol PRN Reason: CIWA score > 8 but <15 Lorazepam (Ativan) 2 mg IV UD PRN; Protocol PRN Reason: CIWA score >/=15. Melatonin (Melatonin) 3 mg PO QHS PRN PRN PRN Reason: INSOMNIA Multivitamins/Minerals (Multivitamin With Minerals (Bkc)) [facility] Last Admin: 06/02/19 08:26 Dose: 1 tablet Documented by: Ondansetron HCl (Zofran) 4 mg IV Q8H PRN PRN PRN Reason: NAUSEA/VOMITING Sodium Chloride () 10 - 40 ml IV UD PRN PRN Reason: SALINE FLUSH Thiamine HCl (Vitamin B1) 100 mg [facility] Stop: 06/04/19 17:01 Last Admin: 06/02/19 08:26 Dose: 100 mg Documented by: Medical Necessity - Tobacco Use Smoking Status: Current some day smoker Tobacco Use: Cigarettes Assessment/Plan All Active Problems (Last Reviewed 06/01/19 @ 23:[address] Alli Mansfield MD) Syncope and collapse (Acute) 1. Syncope with collapse-telemetry with occasional PVCs. Suspect secondary to alcohol intoxication as well as hypoglycemia. Alcohol level on admission 212. Patient reports his blood glucose was 60 at time of syncope. Echocardiogram completed, report pending. Orthostatic vitals negative. Monitor telemetry overnight. Plan for discharge tomorrow if patient remains stable. Encouraged alcohol cessation. Replace magnesium. 2. Alcohol abuse-likely contributing to #1. CIWA/Ativan protocol. 3. Hyponatremia-improving, trend BMP. Suspect secondary to #2. 4. Pancytopenia-unclear etiology, trend CBC. 5. Type 2 diabetes [id number] with sliding scale insulin. Glucose has been fluctuating. Patient reports hypoglycemia at time of syncope. DVT prophylaxis- SCDs This patient was seen by SEJAL George under the supervision of Dr. Rios. <Freddie Rios - Last Filed: 06/02/19 15:14> - Physical Exam Vitals/I&O's: Vital Signs Temp Pulse Resp BP Pulse Ox 98.4 F 65 16 97/55 L 93 06/02/19 09:30 06/02/19 09:30 06/02/19 09:30 06/02/19 09:30 06/02/19 10:28 Oxygen Delivery Method Room Air Weight: 99.1 kg Body Mass Index (BMI) 33.0 Orthostatic Vital Signs Start: 06/01/19 23:23 Freq: q24h Status: Active Protocol: Activity Type Activity Date Activity User E-Sign Co-Sign Detail Recorded Client Recorded Date Recorded By Document 06/01/19 23:23 [facility] [id number] 06/01/19 23:27 NICOLASA 06/01/19 23:23 Orthostatic Vitals Standing -Blood Pressure (90/60-120/80) 97/55 L -Extremity Use Right Arm -Pulse Rate (60-100) 68 Sitting -Blood Pressure (90/60-120/80) 108/66 -Extremity Use Right Arm -Pulse Rate (60-100) 64 Lying -Blood Pressure (90/60-120/80) 101/62 -Extremity Use Right Arm -Pulse Rate (60-100) 63 Intake and Output for Last 24 Hours 05/31/19 06/01/19 06/02/19 23:59 23:59 23:59 Intake Total 837 / 837 Output Total 1000 / 1000 Balance -163 / -163 Laboratory Results 06/01/19 18:20: WBC 4.9, RBC 3.94 L, Hgb 13.1, Hct 39.3 L, MCV 99.7 H, MCH 33.2 H, MCHC 33.3, RDW Std Deviation 46.1 H, RDW Coeff of Shaka 12.5, Plt Count 67 L, MPV 11.3, Immature Gran % (Auto) 0.400, Neut % (Auto) 70.0, Lymph % (Auto) 12.1 L, [place] % (Auto) 15.0 H, Eos % (Auto) 1.9, Baso % (Auto) 0.6, Absolute Neuts (auto) 3.4, Absolute Lymphs (auto) 0.59 L, Nucleated RBC % 0, Differential Comment SCANNED 06/01/19 18:20: Sodium 129 L, Potassium 4.1, Chloride 96 L, Carbon Dioxide 25.0, Anion Gap 8, BUN 15, Creatinine 0.96, Estim Creat Clear Calc 74.22, Est GFR (MDRD) Af Amer 101, Est GFR (MDRD) Non-Af 83, BUN/Creatinine Ratio 15.6, Glucose 139 H, Calcium 9.1, Troponin I < 0.015 06/01/19 18:20: Ethyl Alcohol 212.0 06/01/19 23:10: POC Glucose 110 06/02/19 06:06: WBC 4.1 L, RBC 3.70 L, Hgb 12.2 L, Hct 36.6 L, MCV 98.9 H, MCH 33.0 H, MCHC 33.3, RDW Std Deviation 46.1 H, RDW Coeff of Shaka 12.7, Plt Count 57 L, MPV 11.7, Immature Gran % (Auto) 0.700, Neut % (Auto) 62.3, Lymph % (Auto) 15.6 L, [place] % (Auto) 18.5 H, Eos % (Auto) 1.9, Baso % (Auto) 1.0, Absolute Neuts (auto) 2.6, Absolute Lymphs (auto) 0.64 L, Nucleated RBC % 0, Platelet Estimate MOD DEC, RBC Morphology NORM C+C 06/02/19 06:06: Sodium 133 L, Potassium 3.9, Chloride 99, Carbon Dioxide 28.0, Anion Gap 6, BUN 14, Creatinine 0.84, Estim Creat Clear Calc 84.82, Est GFR (MDRD) Af Amer 118, Est GFR (MDRD) Non-Af 97, BUN/Creatinine Ratio 16.7, Glucose 69 L, Calcium 8.8 06/02/19 06:06: Magnesium 1.3 L, Total Bilirubin 1.00, Direct Bilirubin 0.39 H, AST 51 H, ALT 32, Alkaline Phosphatase 115, Total Protein 6.5, Albumin 2.7 L, Globulin 3.8 06/02/19 06:42: POC Glucose 69 L 06/02/19 06:59: POC Glucose 97 06/02/19 11:54: POC Glucose 216 H 06/02/19 13:10: Urine Opiates Screen NEGATIVE, Urine Methadone Screen NEGATIVE, Ur Barbiturates Screen NEGATIVE, Ur Phencyclidine Scrn NEGATIVE, Ur Amphetamines Screen NEGATIVE, U Methamphetamin-MDMA NEGATIVE, U Benzodiazepines Scrn NEGATIVE, Urine Cocaine Screen NEGATIVE, U Cannabinoids Screen NEGATIVE, Ur Drug Screen Comment Current Medications Acetaminophen (Tylenol) 650 mg PO Q6H PRN PRN PRN Reason: Pain Score 1-10/Temp > 100.7 F Last Admin: 06/02/19 06:51 Dose: 650 mg Documented by: Bacitracin/Polymyxin B Sulfate (Polysporin Ointment) 1 applic TOPICAL BID [facility]; Protocol Last Admin: 06/02/19 08:27 Dose: 1 applic Documented by: Dextrose (D50w Syringe) 0 gm IV X1 PRN; Protocol PRN Reason: Hypoglycemia Folic Acid (Folic Acid) 1 mg PO DAILY@0800 [facility] Stop: 06/04/19 08:01 Last Admin: 06/02/19 08:26 Dose: 1 mg Documented by: Glucagon () 1 mg IM .X1 PRN PRN Reason: Hypoglycemia Sodium Chloride () 250 mls @ 15 mls/hr IV .[id number] PRN PRN Reason: Saline Flush Sodium Chloride () 250 mls @ 15 mls/hr IV .[id number] PRN PRN Reason: Additional IVPB Infusion Insulin Human Lispro (Humalog Kwikpen (Bkc)) 0 unit SC [facility]; Protocol Last Admin: 06/02/19 11:55 Dose: 2 units Documented by: Lorazepam (Ativan) 2 mg PO Q2H PRN PRN; Protocol PRN Reason: CIWA score > 8 but <15 Lorazepam (Ativan) 2 mg PO UD PRN; Protocol PRN Reason: CIWA score >/=15. Lorazepam (Ativan) 2 mg IV Q2H PRN PRN; Protocol PRN Reason: CIWA score > 8 but <15 Lorazepam (Ativan) 2 mg IV UD PRN; Protocol PRN Reason: CIWA score >/=15. Melatonin (Melatonin) 3 mg PO QHS PRN PRN PRN Reason: INSOMNIA Multivitamins/Minerals (Multivitamin With Minerals (Bkc)) 1 tablet PO DAILYCM [facility] Last Admin: 06/02/19 08:26 Dose: 1 tablet Documented by: Ondansetron HCl (Zofran) 4 mg IV Q8H PRN PRN PRN Reason: NAUSEA/VOMITING Sodium Chloride () 10 - 40 ml IV UD PRN PRN Reason: SALINE FLUSH Last Admin: 04/23/20 14:03 Dose: 10 ml Documented by: Thiamine HCl (Vitamin B1) 100 mg [facility] Stop: 06/04/19 17:01 Last Admin: 06/02/19 08:26 Dose: 100 mg Documented by: Assessment/Plan This patient was seen in conjunction with SEJAL George . I have independently interviewed and examined the patient and reviewed pertinent historical, laboratory, and other data. Please refer to SEJAL George note for details of this patient's presentation, findings, and recommendations. I have reviewed SEJAL George note and concur with documented findings. In brief, patient is a 4-year-old gentleman with history of chronic alcohol abuse admitted with?? Syncopal episodes/falls resulting in laceration of her lips which was sutured in the ER. Patient alcohol level obtained at the time of his admission was 215 Physical Examination: GENERAL: cooperative HEENT: Sutured lacerated lip EYES; Anicteric, Normal Conjunctiva NECK; supple, normal thyroid, RESPIRATORY: Diminished to auscultation CARDIOVASCULAR: Regular S1 S2, GI: soft, normoactive bowel sounds, : No Renal angle tenderness; EXTREMITIES: No edema, no clubbing, MUSCULOSKELETAL: no muscle waisting NEURO: Awake; no lateralizing signs. SKIN: No Rash PSYCH; Flat affect Assessment: . Syncopal episode ?Do suspect fall from patient being intoxicated. Telemetry monitoring however demonstrated multiple PVCs. Had significant electrolyte abnormalities including hyponatremia which is currently being corrected 2. Chronic alcohol abuse ?Patient currently undergoing medical stabilization using Ativan 3. Hyponatremia ?Secondary to be beer potomania; on fluids with subsequent monitoring 4. Pancytopenia secondary to patient chronic alcohol use ?Monitor levels 5. Diabetes mellitus type 2 ?Patient was apparently hypoglycemic at the time of his fall. Admitted to a monitored bed with subsequent monitoring of sugar levels 6. DVT prophylaxis ?SCDs Recommendations: 1. I have discussed the results of my overview and impressions with the patient 2. Options for management were reviewed OBSV E&M: 63402 Initial observation care L3
[2019-06-02 13:35] LABS: Amphetamine Urine VISTA NEGATIVE (<1000 ng/mL); Barbiturate Urine VISTA NEGATIVE (< 200 ng/mL); Benzodiazepine Urine VISTA NEGATIVE (< 200 ng/mL); Cocaine Urine VISTA NEGATIVE (< 300 ng/mL); Ecstacy Urine VISTA NEGATIVE (< 500 ng/mL); Methadone Urine VISTA NEGATIVE (< 300 ng/mL); PCP Urine VISTA NEGATIVE (< 25 ng/mL); THC Urine VISTA NEGATIVE (< 50 ng/mL); Vista UDS pH Range 7
[2019-06-02] MEDS: 0.9% Saline Lock 10 ML Syringe IV ×2 (14:03→17:11)
--- NOTE | 2019-06-02 14:53 | CHAPLAIN ---
Type of Pastoral Visit _x__ Initial Visit ___ Follow-up Visit ___ On-call Visit ___ General Patient Visit ___ Spiritual Assessment ___ Family Conference ___ Bereavement ___ Rapid Response ___ Code Blue ___ Other (describe below) Pastoral Care Referral From _x__ Patient ___ Family ___ Nurse ___ Physician ___ Security Tester ___ Firmware Developer ___ Other (describe below) Sacrament/Intervention _x__ Active listening ___ Anointing ___ Sabianism ___ Bereavement ___ Communion _x__ Irene exploration ___ _x__ Life review _x__ Prayer ___ Reconciliation ___ Sacrament of Sick _x__ Supportive presence ___ Wedding ___ Other (describe below) Pastoral Comments
--- NOTE | 2019-06-02 15:05 | CASEMGMT ---
RN MK Face to Face with patient for initial transition planning/care coordination assessment. RN CM introduced self and role at [facility]. Patient lying in bed, alert and oriented. Patient willing to participate in assessment and is able to answer all questions appropriately. Care providers, pharmacy, and demographics verified. Patient wishes to discharge home, denies need for home health at this time. Patient states he has no further needs or concerns at this time. CM to follow for discharge planning needs that may arise. PCP: Diandra Noel CNP Specialists: none [facility] Pres[facility] Benefit: yes Living Will/HPOA: none LNOK: brother Living Arrangements: Patient lives alone in ranch style home with 5 steps to enter the home. Patient states he is independent. Transportation: self/brother DME/HHC: Patient state he has shower chair, cane, and walker at home. Patient states he had HHC 6 years ago, denies need for HHC. Patient states he only smokes 3 cigarette per day and drinks about 1 beer per day. Patient denied further needs at this time. Disposition Plan: Patient to discharge home with family support and follow-up plans in place. Maile DENIS, RN, CM
[2019-06-02 17:16] LABS: Bedside Glucose 179 mg/dL (70-110)
[2019-06-02 21:46] LABS: Bedside Glucose 175 mg/dL (70-110)
[2019-06-03] VITALS (9 sets, daily range): BP systolic 113–143; BP diastolic 68–75; PULSE 59–69; RESP 14–16; TEMP 36.5–36.7; O2SAT 94–98
[2019-06-03 06:24] LABS: Hematocrit 39.5 % (40-54); Mean Corp Hgb Conc 32.9 g/dL (32-36); Mean Corpuscular Hgb 32.8 pg (27.0-32.0); Mean Corpuscular Volume 99.7 fL (80-94); Mean Platelet Vol. 11.1 fl (6.2-12.0); POSITIVE COUNT YES; Platelet Count 58 K/mm3 (150-450); RBC Distribution Width CV 12.7 % (11.6-14.6); RBC Distribution Width SD 46.3 fl (35.1-43.9); Red Blood Count 3.96 M/mm3 (4.6-6.2)
[2019-06-03 06:47] LABS: ALB/GLOB Ratio 0.7 RATIO (0.9-2.4); AST(SGOT) 62 U/L (15-37); Alanine Aminotransfer ALT/SGPT 34 U/L (16-61); Albumin, Serum 2.8 g/dL (3.2-5.0); Alkaline Phosphatase 137 U/L (45-117); Anion Gap 7 (5-15); BUN 15 mg/dL (7-18); BUN/Creat Ratio 17.3 RATIO (10-20); Calcium,Total 8.7 mg/dL (8.5-10.1); Chloride 99 mmol/L (98-107); Creatinine, Serum 0.87 mg/dL (0.70-1.30); EST Glomerular Filtration Rate 94 mL/min (>60); Est Glom Filt Rate - Afr Amer 114 mL/min (>60); Globulin 4.1 g/dL (2.2-4.2); Glucose 139 mg/dL (74-106); Magnesium 1.4 mg/dL (1.6-2.6); Potassium 4.1 mmol/L (3.5-5.1); Protein, Total 6.9 g/dL (6.4-8.2); Sodium Level 132 mmol/L (136-145)
[2019-06-03 07:10] LABS: Bedside Glucose 143 mg/dL (70-110)
[2019-06-03] MEDS: Folic Acid 1 MG Tablet PO (07:51)
[2019-06-03] MEDS: BACITRACIN/POLYMYXIN B 15 GM Tube 1 APPLIC TOPICAL ×2 (07:51→21:28)
[2019-06-03] MEDS: Multivitamins,Ther W-Minerals Tablet 1 TABLET PO (07:51)
[2019-06-03] MEDS: Thiamine Hydrochloride 100 MG Tablet PO ×2 (07:51→16:16)
[2019-06-03] MEDS: Magnesium Sulfate 4gm/100mL 4 GM/100 ML IV.SOLN. IV (09:35)
[2019-06-03] MEDS: 0.9% Saline Lock 10 ML Syringe IV (09:36)
[2019-06-03] MEDS: Insulin Lispro 100 UNIT/ML INSULN.PEN SC ×3 (10:59→21:28)
[2019-06-03 11:06] LABS: Bedside Glucose 216 mg/dL (70-110)
--- NOTE | 2019-06-03 11:55 | PN_ITS ---
Patient Problems: Active and Suspected Problems (Last Reviewed 06/01/19 @ 23:[address] Alli Mansfield MD) Syncope and collapse (Acute) Subjective: Patient is a 4-year-old gentleman with history of chronic alcohol abuse admitted with?? Syncopal episodes/falls resulting in laceration of her lips which was sutured in the ER. Patient alcohol level obtained at the time of his admission was 215 Patient seen. Telemetry monitoring demonstrated occasional PVCs. Magnesium 1.4 this a.m. being repleted. No recurrence of syncopal episode following admission Objective: GENERAL: cooperative HEENT: Sutured lacerated lip EYES; Anicteric, Normal Conjunctiva NECK; supple, normal thyroid, RESPIRATORY: Diminished to auscultation CARDIOVASCULAR: Regular S1 S2, GI: soft, normoactive bowel sounds, : No Renal angle tenderness; EXTREMITIES: No edema, no clubbing, MUSCULOSKELETAL: no muscle waisting NEURO: Awake; no lateralizing signs. SKIN: No Rash PSYCH; Flat affect Vitals/I&O's: Vital Signs Temp Pulse Resp BP Pulse Ox 97.8 F 59 L 14 134/68 H 94 06/03/19 09:00 06/03/19 11:01 06/03/19 09:00 06/03/19 09:00 06/03/19 09:00 Oxygen Delivery Method Room Air Weight: 99.1 kg Body Mass Index (BMI) 33.0 Orthostatic Vital Signs Start: 06/01/19 23:23 Freq: q24h Status: Active Protocol: Activity Type Activity Date Activity User E-Sign Co-Sign Detail Recorded Client Recorded Date Recorded By Document 06/02/19 23:41 BD [id number] 06/02/19 23:50 BD 06/02/19 23:41 Orthostatic Vitals Standing -Blood Pressure (90/60-120/80) 119/66 -Extremity Use Left Arm -Pulse Rate (60-100) 62 Sitting -Blood Pressure (90/60-120/80) 127/68 H -Extremity Use Left Arm -Pulse Rate (60-100) 61 Lying -Blood Pressure (90/60-120/80) 118/58 L -Extremity Use Right Arm -Pulse Rate (60-100) 60 Intake and Output for Last 24 Hours 04/22/20 04/23/20 04/24/20 23:59 23:59 23:59 Intake Total 1891 / 1891 200 / 200 Output Total 2750 / 2750 750 / 750 Balance -859 / -859 -550 / -550 Laboratory Results 06/02/19 11:54: POC Glucose 216 H 06/02/19 13:10: Urine Opiates Screen NEGATIVE, Urine Methadone Screen NEGATIVE, Ur Barbiturates Screen NEGATIVE, Ur Phencyclidine Scrn NEGATIVE, Ur Amphetamines Screen NEGATIVE, U Methamphetamin-MDMA NEGATIVE, U Benzodiazepines Scrn NEGATIVE, Urine Cocaine Screen NEGATIVE, U Cannabinoids Screen NEGATIVE, Ur Drug Screen Comment 06/02/19 17:09: POC Glucose 179 H 06/02/19 21:33: POC Glucose 175 H 06/03/19 06:04: Sodium 132 L, Potassium 4.1, Chloride 99, Carbon Dioxide 26.0, Anion Gap 7, BUN 15, Creatinine 0.87, Estim Creat Clear Calc 81.90, Est GFR (MDRD) Af Amer 114, Est GFR (MDRD) Non-Af 94, BUN/Creatinine Ratio 17.3, Glucose 139 H, Calcium 8.7, Magnesium 1.4 L, Total Bilirubin 1.60 H, AST 62 H, ALT 34, Alkaline Phosphatase 137 H, Total Protein 6.9, Albumin 2.8 L, Globulin 4.1, Albumin/Globulin Ratio 0.7 L 06/03/19 06:04: WBC 4.0 L, RBC 3.96 L, Hgb 13.0, Hct 39.5 L, MCV 99.7 H, MCH 32.8 H, MCHC 32.9, RDW Std Deviation 46.3 H, RDW Coeff of Shaka 12.7, Plt Count 58 L, MPV 11.1 06/03/19 06:29: POC Glucose 143 H 06/03/19 10:57: POC Glucose 216 H Current Medications Acetaminophen (Tylenol) 650 mg PO Q6H PRN PRN PRN Reason: Pain Score 1-10/Temp > 100.7 F Last Admin: 06/02/19 20:11 Dose: 650 mg Documented by: Bacitracin/Polymyxin B Sulfate (Polysporin Ointment) 1 applic TOPICAL BID [facility]; Protocol Last Admin: 06/03/19 07:51 Dose: 1 applic Documented by: Dextrose (D50w Syringe) 0 gm IV X1 PRN; Protocol PRN Reason: Hypoglycemia Folic Acid (Folic Acid) 1 mg PO DAILY@0800 [facility] Stop: 06/04/19 08:01 Last Admin: 06/03/19 07:51 Dose: 1 mg Documented by: Glucagon () 1 mg IM .X1 PRN PRN Reason: Hypoglycemia Sodium Chloride () 250 mls @ 15 mls/hr IV .[id number] PRN PRN Reason: Saline Flush Sodium Chloride () 250 mls @ 15 mls/hr IV .[id number] PRN PRN Reason: Additional IVPB Infusion Magnesium Sulfate () 4 gm in 100 mls @ 25 mls/hr IV X1 ONE Stop: 06/03/19 13:05 Last Admin: 06/03/19 09:35 Dose: 25 mls/hr Documented by: Insulin Human Lispro (Humalog [place]ikpen (Bkc)) 0 unit SC [facility]; Protocol Last Admin: 06/03/19 10:59 Dose: 2 units Documented by: Lorazepam (Ativan) 2 mg PO Q2H PRN PRN; Protocol PRN Reason: CIWA score > 8 but <15 Lorazepam (Ativan) 2 mg PO UD PRN; Protocol PRN Reason: CIWA score >/=15. Lorazepam (Ativan) 2 mg IV Q2H PRN PRN; Protocol PRN Reason: CIWA score > 8 but <15 Lorazepam (Ativan) 2 mg IV UD PRN; Protocol PRN Reason: CIWA score >/=15. [facility]Ox 400) [facility] Melatonin (Melatonin) 3 mg PO QHS PRN PRN PRN Reason: INSOMNIA Multivitamins/Minerals (Multivitamin With Minerals (Bkc)) [facility] Last Admin: 06/03/19 07:51 Dose: 1 tablet Documented by: Ondansetron HCl (Zofran) 4 mg IV Q8H PRN PRN PRN Reason: NAUSEA/VOMITING Sodium Chloride () 10 - 40 ml IV UD PRN PRN Reason: SALINE FLUSH Last Admin: 06/03/19 09:36 Dose: 20 ml Documented by: Thiamine HCl (Vitamin B1) [facility] Stop: 06/04/19 17:01 Last Admin: 06/03/19 07:51 Dose: 100 mg Documented by: STROKE Vital Signs/Narrative: Vital Signs Temp Pulse Resp BP Pulse Ox 06/03/19 11:01 59 L 06/03/19 09:00 97.8 F 62 14 134/68 H 94 Medical Necessity - Tobacco Use Smoking Status: Current some day smoker Tobacco Use: Cigarettes Assessment/Plan All Active Problems (Last Reviewed 06/01/19 @ 23:[address] Alli Mansfield MD) Syncope and collapse (Acute) In brief, patient is a 4-year-old gentleman with history of chronic alcohol abuse admitted with?? Syncopal episodes/falls resulting in laceration of her lips which was sutured in the ER. Patient alcohol level obtained at the time of his admission was 215 1. Syncopal episode ?Do suspect fall from patient being intoxicated. Telemetry monitoring however demonstrated multiple PVCs. Had significant electrolyte abnormalities including hyponatremia which is currently being corrected 2. Chronic alcohol abuse ?Patient currently undergoing medical stabilization using Ativan 3. Hyponatremia ?Secondary to be beer potomania; on fluids with subsequent monitoring 4. Pancytopenia secondary to patient chronic alcohol use ?Monitor levels 5. Diabetes mellitus type 2 ?Patient was apparently hypoglycemic at the time of his fall. Admitted to a monitored bed with subsequent monitoring of sugar levels 6. DVT prophylaxis ?SCDs 7. Hypomagnesemia ?Corrected per protocol Inpatient E&M: 06253 Subs Hosp L2
[2019-06-03] MEDS: Magnesium Oxide 400 MG Tablet PO (16:16)
[2019-06-03 16:26] LABS: Bedside Glucose 241 mg/dL (70-110)
[2019-06-03 22:56] LABS: Bedside Glucose 156 mg/dL (70-110)
[2019-06-04 03:00] VITALS: BP 106/60; BP 106/67; BP 116/67; PULSE 68; PULSE 70; PULSE 71; RESP 16; TEMP 36.4; O2SAT 96
[2019-06-04 03:01] VITALS: PULSE 76
[2019-06-04 06:24] LABS: Anion Gap 7 (5-15); BUN 17 mg/dL (7-18); BUN/Creat Ratio 20.3 RATIO (10-20); Calcium,Total 8.7 mg/dL (8.5-10.1); Chloride 98 mmol/L (98-107); Creatinine, Serum 0.84 mg/dL (0.70-1.30); EST Glomerular Filtration Rate 98 mL/min (>60); Est Glom Filt Rate - Afr Amer 118 mL/min (>60); Estimated Creatinine Clearance 84.82 ml/min; Glucose 188 mg/dL (74-106); Potassium 3.9 mmol/L (3.5-5.1); Sodium Level 130 mmol/L (136-145)
[2019-06-04] MEDS: Insulin Lispro 100 UNIT/ML INSULN.PEN SC (06:40)
[2019-06-04 06:45] LABS: Bedside Glucose 175 mg/dL (70-110)
[2019-06-04 07:24] VITALS: O2SAT 95
[2019-06-04 08:00] VITALS: PULSE 64
[2019-06-04 09:41] VITALS: BP 135/76; PULSE 60; RESP 18; TEMP 36.8; O2SAT 94
[2019-06-04] MEDS: Acetaminophen 325 MG Tablet 650 MG PO (09:49)
[2019-06-04] MEDS: Thiamine Hydrochloride 100 MG Tablet PO (09:50)
[2019-06-04] MEDS: Multivitamins,Ther W-Minerals Tablet 1 TABLET PO (09:50)
[2019-06-04] MEDS: Magnesium Oxide 400 MG Tablet PO (09:50)
[2019-06-04] MEDS: Folic Acid 1 MG Tablet PO (09:50)
[2019-06-04] MEDS: BACITRACIN/POLYMYXIN B 15 GM Tube 1 APPLIC TOPICAL (09:51)
--- NOTE | 2019-06-04 10:57 | DCINST_ITS ---
- Discharge Diagnoses Current Active Problems: Current Active and Chronic Problems (Last Reviewed 06/01/19 @ 23:[address] Alli Mansfield MD) Syncope and collapse (Acute) You will use the following diet at home:: Calorie/Carbohydrate Controlled (specify 1200, 1400, etc) - 1800 Your food should be the consistency of: Regular Discharge Activity: May not drive while taking narcotic pain medications. Allergies/Adverse Reactions: Allergies metformin Adverse Reaction (Verified 12/30/18 10:28) EDEMA Medications to take at Discharge Fluoxetine [Prozac] 20 mg PO DAILY 10/16/15 Lasix 20 mg PO DAILY 10/16/15 Albuterol Sulfate [Proventil Hfa] 6.7 gm IH 4X/DAY PRN PRN #1 hfa.aer.ad 12/30/18 Famotidine 20 mg PO BID 06/02/19 Bacitracin/Polymyxin B Ointmen [Polysporin Ointment] 1 applic TOPICAL BID tube 06/04/19 Doxazosin Mesylate [Cardura] 4 mg PO DAILY #60 tab 06/04/19 Insulin Glargine,Hum.rec.anlog [Basaglar Kwikpen U-100] 15 unit SQ QHS #0 06/04/19 Magnesium Oxide [Mag-Ox 400] 400 mg PO BIDCM #60 tab 06/04/19 Multivitamins,Ther W-Minerals [Multivitamin With Minerals (BKC)] 1 tab PO DAILYCM #60 tab 06/04/19 Propranolol HCl [Propranolol HCl ER] 60 mg PO DAILY #60 cap.sa.24h 06/04/19 Spironolactone [Aldactone] 25 mg PO BID #120 tab 06/04/19 Thiamine Hydrochloride [Vitamin B1] 100 mg PO BIDCM #60 tab 06/04/19 The following prescriptions were given: Spironolactone [Aldactone] 25 mg PO BID #120 tab Transmission Status: [id number] Doxazosin Mesylate [Cardura] 4 mg PO DAILY #60 tab Transmission Status: [id number] Magnesium Oxide [Mag-Ox 400] 400 mg PO BIDCM #60 tab Transmission Status: [facility][id number] Multivitamins,Ther W-Minerals [Multivitamin With Minerals (BKC)] 1 tab PO DAILYCM #60 tab Transmission Status: [facility][id number] Propranolol HCl [Propranolol HCl ER] 60 mg PO DAILY #60 cap.sa.24h Thiamine Hydrochloride [Vitamin B1] 100 mg PO BIDCM #60 tab Transmission Status: Pending to [facility]/pharmacy #[id number] Primary Care Physician: Diandra Noel NP-C [Primary Care Provider] - Please follow up with your Primary Care Physician in: Patient to call for an appointment Test Results: Test results from this visit will be discussed in further detail at your follow- up appointment, if applicable. Proposed Discharge Date: 06/04/19
--- NOTE | 2019-06-04 11:02 | PCM.DC.SUM ---
Discharge Date and Diagnosis - Problem List Patient Problems: Active and Suspected Problems (Last Reviewed 06/01/19 @ 23:[address] Alli Mansfield MD) Syncope and collapse (Acute) Date of Admission: 06/01/19 Date of Discharge: 06/04/19 - Primary Discharge Diagnosis Active and Suspected Problems (Last Reviewed 06/01/19 @ 23:[address] Alli Mansfield MD) Syncope and collapse (Acute) - Secondary Discharge Diagnosis Hypertension Diabetes mellitus type 2 Chronic alcohol use Tobacco dependence Hospital Course and Treatment Summary of Care Provided: In brief, patient is a 4-year-old gentleman with history of chronic alcohol abuse admitted with?? Syncopal episodes/falls resulting in laceration of her lips which was sutured in the ER. Patient alcohol level obtained at the time of his admission was 215 1. Syncopal episode ?Secondary to a combination of factors including intoxication with alcohol, relatively low blood pressure from antihypertensives and hypoglycemia.. Telemetry monitoring however demonstrated multiple PVCs. Had significant electrolyte abnormalities including hyponatremia which is currently being corrected 2. Chronic alcohol abuse ?Patient currently undergoing medical stabilization using Ativan 3. Hyponatremia ?Secondary to be beer potomania; on fluids with subsequent monitoring 4. Pancytopenia secondary to patient chronic alcohol use ?Monitor levels 5. Diabetes mellitus type 2 ?Patient was apparently hypoglycemic at the time of his fall. Admitted to a monitored bed with subsequent monitoring of sugar levels ?Patient glimepiride was discontinued on discharge. Also decrease the dose of his long-acting insulin. 6. DVT prophylaxis ?SCDs 7. Hypomagnesemia ?Corrected per protocol 8. Essential hypertension Did adjust patient antihypertensives prior to discharge 9. Tobacco dependence counseled on cessation, offered nicotine patch for tobacco cravings Patient Problems: Active and Suspected Problems (Last Reviewed 06/01/19 @ 23:[address] Alli Mansfield MD) Syncope and collapse (Acute) Objective: GENERAL: cooperative HEENT: Sutured lacerated lip EYES; Anicteric, Normal Conjunctiva NECK; supple, normal thyroid, RESPIRATORY: Diminished to auscultation CARDIOVASCULAR: Regular S1 S2, GI: soft, normoactive bowel sounds, : No Renal angle tenderness; EXTREMITIES: No edema, no clubbing, MUSCULOSKELETAL: no muscle waisting NEURO: Awake; no lateralizing signs. SKIN: No Rash PSYCH; Flat affect - Physical Exam Vitals/I&O's: Vital Signs Temp Pulse Resp BP Pulse Ox 98.3 F 60 18 135/76 H 94 06/04/19 09:41 06/04/19 09:41 06/04/19 09:41 06/04/19 09:41 06/04/19 09:41 Oxygen Delivery Method Room Air Weight: 99.1 kg Body Mass Index (BMI) 33.0 Orthostatic Vital Signs Start: 06/01/19 23:23 Freq: q24h Status: Active Protocol: Activity Type Activity Date Activity User E-Sign Co-Sign Detail Recorded Client Recorded Date Recorded By Document 06/04/19 03:00 MAB [id number] 06/04/19 03:58 MAB 06/04/19 03:00 Orthostatic Vitals Standing -Blood Pressure (90/60-120/80) 106/67 -Extremity Use Right Arm -Pulse Rate (60-100) 70 Sitting -Blood Pressure (90/60-120/80) 116/67 -Extremity Use Right Arm -Pulse Rate (60-100) 71 Lying -Blood Pressure (90/60-120/80) 106/60 -Extremity Use Right Arm -Pulse Rate (60-100) 68 Intake and Output for Last 24 Hours 06/02/19 06/03/19 06/04/19 23:59 23:59 23:59 Intake Total 1891 / 1891 1540 / 1540 120 / 120 Output Total 2750 / 2750 750 / 750 Balance -859 / -859 790 / 790 120 / 120 Laboratory Results 06/03/19 10:57: POC Glucose 216 H 06/03/19 16:14: POC Glucose 241 H 06/03/19 21:26: POC Glucose 156 H 06/04/19 05:32: Sodium 130 L, Potassium 3.9, Chloride 98, Carbon Dioxide 25.0, Anion Gap 7, BUN 17, Creatinine 0.84, Estim Creat Clear Calc 84.82, Est GFR (MDRD) Af Amer 118, Est GFR (MDRD) Non-Af 98, BUN/Creatinine Ratio 20.3 H, Glucose 188 H, Calcium 8.7 06/04/19 06:38: POC Glucose 175 H Current Medications Acetaminophen (Tylenol) 650 mg PO Q6H PRN PRN PRN Reason: Pain Score 1-10/Temp > 100.7 F Last Admin: 06/04/19 09:49 Dose: 650 mg Documented by: Bacitracin/Polymyxin B Sulfate (Polysporin Ointment) 1 applic TOPICAL BID [facility]; Protocol Last Admin: 06/04/19 09:51 Dose: 1 applic Documented by: Dextrose (D50w Syringe) 0 gm IV X1 PRN; Protocol PRN Reason: Hypoglycemia Glucagon () 1 mg IM .X1 PRN PRN Reason: Hypoglycemia Sodium Chloride () 250 mls @ 15 mls/hr IV .[id number] PRN PRN Reason: Saline Flush Sodium Chloride () 250 mls @ 15 mls/hr IV .[id number] PRN PRN Reason: Additional IVPB Infusion Insulin Human Lispro (Humalog Kwikpen (Bkc)) 0 unit [facility]; Protocol Last Admin: 06/04/19 06:40 Dose: 1 units Documented by: Lorazepam (Ativan) 2 mg PO Q2H PRN PRN; Protocol PRN Reason: CIWA score > 8 but <15 Lorazepam (Ativan) 2 mg PO UD PRN; Protocol PRN Reason: CIWA score >/=15. Lorazepam (Ativan) 2 mg IV Q2H PRN PRN; Protocol PRN Reason: CIWA score > 8 but <15 Lorazepam (Ativan) 2 mg IV UD PRN; Protocol PRN Reason: CIWA score >/=15. Magnesium Ox[facility] (Mag[facility]Ox 400) [facility] Last Admin: 06/04/19 09:50 Dose: 400 mg Documented by: Melatonin (Melatonin) 3 mg PO QHS PRN PRN PRN Reason: INSOMNIA Multivitamins/Minerals (Multivitamin With Minerals (Bkc)) [facility] Last Admin: 06/04/19 09:50 Dose: 1 tablet Documented by: Ondansetron HCl (Zofran) 4 mg IV Q8H PRN PRN PRN Reason: NAUSEA/VOMITING Sodium Chloride () 10 - 40 ml IV UD PRN PRN Reason: SALINE FLUSH Last Admin: 06/03/19 09:36 Dose: 20 ml Documented by: Thiamine HCl (Vitamin B1) [facility] Stop: 06/04/19 17:01 Last Admin: 06/04/19 09:50 Dose: 100 mg Documented by: Discharge Activity: May not drive while taking narcotic pain medications. Home Medications: Medications to take at Discharge Fluoxetine [Prozac] 20 mg PO DAILY 10/16/15 Lasix 20 mg PO DAILY 10/16/15 Albuterol Sulfate [Proventil Hfa] 6.7 gm IH 4X/DAY PRN PRN #1 hfa.aer.ad 12/30/18 Famotidine 20 mg PO BID 06/02/19 Bacitracin/Polymyxin B Ointmen [Polysporin Ointment] 1 applic TOPICAL BID tube 06/04/19 Doxazosin Mesylate [Cardura] 4 mg PO DAILY #60 tab 06/04/19 Insulin Glargine,Hum.rec.anlog [Basaglar Kwikpen U-100] 15 unit SQ QHS #0 06/04/19 Magnesium Oxide [Mag-Ox 400] 400 mg PO BIDCM #60 tab 06/04/19 Multivitamins,Ther W-Minerals [Multivitamin With Minerals (BKC)] 1 tab PO DAILYCM #60 tab 06/04/19 Propranolol HCl [Propranolol HCl ER] 60 mg PO DAILY #60 cap.sa.24h 06/04/19 Spironolactone [Aldactone] 25 mg PO BID #120 tab 06/04/19 Thiamine Hydrochloride [Vitamin B1] 100 mg PO BIDCM #60 tab 06/04/19 Following Prescrptions Were Given to Patient: Spironolactone [Aldactone] 25 mg PO BID #120 tab Transmission Status: [id number] Doxazosin Mesylate [Cardura] 4 mg PO DAILY #60 tab Transmission Status: [id number] Magnesium Oxide [Mag-Ox 400] 400 mg PO BIDCM #60 tab Transmission Status: [id number] Multivitamins,Ther W-Minerals [Multivitamin With Minerals (BKC)] 1 tab PO DAILYCM #60 tab Transmission Status: [id number] Propranolol HCl [Propranolol HCl ER] 60 mg PO DAILY #60 cap.sa.24h Thiamine Hydrochloride [Vitamin B1] 100 mg PO BIDCM #60 tab Transmission Status: [id number] Primary Care Physician: Diandra Noel NP-C [Primary Care Provider] - Please follow up with your Primary Care Physician in: Patient to call for an appointment Disposition: Home Minutes spent on discharge:: 40 Patient Condition:: Stable Medical Necessity - Tobacco Use Smoking Status: Current some day smoker Tobacco Use: Cigarettes Meaningful Use Info Meaningful Use Diagnoses (Choose all that apply): None applicable Inpatient E&M: 02018 Disch Hosp
--- NOTE | 2019-06-06 15:28 | CASEMGMT ---
KENZIE TERRAZAS F/U Phone call LACE: 12 Strata: 3 Discharge date: 06/04/2019 Call date: 06/06/2019 Call time: [id number] Admission dx: Syncope Pt states has been doing 'good' since discharge. Pt states no questions regarding discharge instructions/medications at this time. Pt states has not made f/u appt with PCP yet but plans to. Pt states he is trying to catch up on sleep as he did not sleep much while admitted. Pt states no suggestions for [facility] at this time. Pt voices no further questions/concerns/needs at this time. Pt thanked this KENZIE TERRAZAS for the call. Chucho ESPINO CM
== END 2019-06-04 12:25 | disposition home or self-care (01) | DRG 897 ==
LOC: ED 19:47 → PCU 21:21
PROVIDERS: Nurse Practitioner Family; Admitting Provider Hospitalist; Emergency Provider Emergency Medicine; PCP Nurse Practitioner Family; Referring Provider Hospitalist; Visit Provider Internal Medicine
DX: F10.229 Alcohol dependence with intoxication, unspecified (principal); E87.1 Hypo-osmolality and hyponatremia; D61.818 Other pancytopenia; R55 Syncope and collapse; E11.9 Type 2 diabetes mellitus without complications; I10 Essential (primary) hypertension; E78.00 Pure hypercholesterolemia, unspecified; Z79.4 Long term (current) use of insulin; S01.511A Laceration without foreign body of lip, initial encounter; W26.8XXA Contact with other sharp object(s), not elsewhere classified, initial encounter; Y93.89 Activity, other specified; Y92.000 Kitchen of unspecified non-institutional (private) residence as the place of occurrence of the external cause; Y99.8 Other external cause status; Z79.899 Other long term (current) drug therapy; F17.210 Nicotine dependence, cigarettes, uncomplicated; Y90.7 Blood alcohol level of 200-239 mg/100 ml; E83.42 Hypomagnesemia
CPT/HCPCS: 36415; 71045; 80048; 80053; 80076; 80307; 80320; 82962; 83735; 84484; 85025; 85027; 93005; 93306; 97802; 99285; 99406; J7040; Q9957; A4216; G0480

== ENCOUNTER 2019-10-11 16:06 | Emergency (ER) | payer MEDICARE, MEDICAID, SELFPAY ==
[2019-06-01 22:36] VITALS: BMI 33.0
[2019-10-11 16:07] VITALS: BP 130/78; PULSE 80; RESP 20; TEMP 37.1; O2SAT 95; BMI 38.0
--- NOTE | 2019-10-11 16:30 | CT_ITS ---
STUDY: CT ABDOMEN AND PELVIS WITH CONTRAST REASON FOR EXAM: Male, 64 years old. AB SWELLING AND PITTING EDEMA OF LEFT LEG. ALCOHOLISM HISTORY, HTN, A-FIB RADIATION DOSAGE (If Supplied By Facility): CTDIvol = ( 24.84 ) mGy, DLP = ( 1425.60 ) mGycm TECHNIQUE: Transaxial images were obtained from the dome of the diaphragm to the symphysis pubis without oral contrast. 100mL Isovue-370 was administered. Sagittal and coronal images were reconstructed. Individualized dose optimization techniques were used for this CT. COMPARISON: None. FINDINGS: The visualized lung bases are unremarkable. The visualized portions of the heart demonstrate coronary artery and valvular calcifications. There is a diffuse contour abnormality of the liver consistent with cirrhotic changes. Marked ascites. There are multiple gallstones. Normal spleen. Normal pancreas. Normal bilateral adrenal glands. There is moderate cortical atrophy of the right kidney, consistent with chronic medical renal disease. There is moderate cortical atrophy of the left kidney, consistent with chronic medical renal disease. Normal visualized stomach. Normal small intestine. Normal colon. The appendix is visualized and appears normal. There is diffuse atherosclerotic calcification of the abdominal aorta, without a demonstrated aneurysm. Normal inferior vena cava. Normal retroperitoneum. Normal urinary bladder. There are prostatic calcifications. Normal abdominal wall. There are diffuse degenerative changes of the visualized lumbar spine. Heterogeneous sclerotic changes of the visualized lumbosacral spine. CT/Abdomen/Pelvis WITH Contrast IMPRESSION: Cirrhosis and large abdominal ascites. Gallstones and prominent gallbladder wall which may be partially attributable to reactive changes. Consider correlation with right upper quadrant if acute cholecystitis is a clinical concern. Heterogeneous sclerotic appearance of the visualized spine is nonspecific. Consider MRI for further evaluation as clinically indicated. Electronically Signed: Ravi Enriquez, at 18:47 EDT Tel , Service support ,
--- NOTE | 2019-10-11 16:33 | EKG12_ITS ---
Test Reason : EDEMA Blood Pressure : / mmHG Vent. Rate : 072 BPM Atrial Rate : 072 BPM P-R Int : 134 ms QRS Dur : 082 ms QT Int : 422 ms P-R-T Axes : 049 -06 -17 degrees QTc Int : 462 ms Sinus rhythm with Premature supraventricular complexes Possible Lateral infarct , age undetermined Abnormal ECG Confirmed by LIANE BURKS, NAVDEEP ([id number]), food expeditor SVITLANA NORTH ([id number]) on 10/13/2019 10:56:02 AM Referred By: ANOOP Confirmed By:NAVDEEP ROB MD
--- NOTE | 2019-10-11 16:35 | ED.VISSUMM ---
- ER Visit Summary Date of Service: 10/11/19 Chief Complaint: Abdominal and leg swelling History of Present Illness: The patient is a 64 M presenting with swelling of his abdomen and lower extremities. He states this started a couple of weeks ago but has been progressively worsening. His left leg is swollen more than the right. He takes Lasix and has had no recent dosage changes. He states his abdomen has been bloated over the past couple of weeks and progressively worsening. He denies shortness of breath or chest pain. Denies fever. Denies nausea, vomiting, diarrhea. He has a history of alcohol abuse and states he quit drinking a month ago. Denies other complaints. Physical Examination: Vitals are stable. Patient is afebrile. Alert no acute distress. HEENT exam is unremarkable. Neck is supple. Lungs are clear and equal bilaterally. Heart is regular rate and rhythm. Abdomen is soft distended, nontender Extremities bilateral pitting edema left greater than right. Normal pulses. Skin is warm and dry. No focal neurologic deficit. Remainder of exam is unremarkable. Emergency Department Course and Treatment: CBC normal except platelet 131. Chemistries show potassium 3.4, glucose 191. Total bili 1.8, previous 1.6. Direct bili 0.86, alk phos 157, AST 49, lipase is normal. INR 1.4. EKG is sinus rhythm rate of 72 with no acute ischemic changes. Chest xray shows low lung volumes may accentuate pulmonary vascular markings which are prominent on this examination and may indicate an element of pulmonary edema. Venous Doppler bilateral lower extremity shows no evidence of DVT. CT abdomen/pelvis shows cirrhosis and large abdominal ascites. Gallstones and prominent gallbladder wall which may be partially attributable to reactive changes. Consider correlation with right upper quadrant if acute cholecystitis is a clinical concern. Heterogeneous sclerotic appearance of the visualized spine is nonspecific. Right upper quadrant ultrasound shows ascites and cirrhosis. Dependent gallstones. Mild gallbladder wall thickening. Negative sonographic Victor''s sign. Correlate clinically to exclude cholecystitis. He has no right upper quadrant tenderness on exam. Discussed with Dr Javed. It is felt the patient should be transferred to a tertiary care center with GI/Liver specialist. Patient is agreeable to transfer. Disposition: Transfer [facility] Impression: Ascites, cirrhosis This note was generated with [employer] dictation software. It may contain incorrect words, spelling, and punctuation that were not noted in review of the chart prior to signing ED Disposition - Plan for ED Patient: Referrals: Diandra Noel, SCRAPER HAND-C [NON-STAFF] -
--- NOTE | 2019-10-11 17:10 | US_ITS ---
STUDY: VENOUS DOPPLER ULTRASOUND - BILATERAL LOWER EXTREMITIES REASON FOR EXAM: Male, 64 years old. PITTING EDEMA AND BILATERAL MEDIAL CALF PALP AREAS TECHNIQUE: Ultrasound evaluation of the deep vein system to include arauz-scale imaging and compression was performed. Arauz-scale imaging and Doppler sonographic evaluation, including duplex spectral analysis and qualitative color flow sonography, was performed. COMPARISON: None. FINDINGS: RIGHT LEG Common Femoral Vein: Normal compression, spontaneity and augmentation. Normal color Doppler. Common Femoral Vein/Greater Saphenous Junction: Normal compression. Deep Femoral Vein: Not assessed. Femoral Proximal: Normal compression. Femoral Middle: Normal compression, spontaneity and augmentation. Normal color Doppler. Femoral Distal: Normal compression. Popliteal Vein: Normal compression, spontaneity and augmentation. Normal color Doppler. Posterior Tibial Vein: Normal compression. Peroneal Vein: Normal compression. LEFT LEG Common Femoral Vein: Normal compression, spontaneity and augmentation. Normal color Doppler. Common Femoral Vein/Greater Saphenous Junction: Normal compression. Deep Femoral Vein: Not assessed. Femoral Proximal: Normal compression. Femoral Middle: Normal compression, spontaneity and augmentation. Normal color Doppler. Femoral Distal: Normal compression. Popliteal Vein: Normal compression, spontaneity and augmentation. Normal color Doppler. Posterior Tibial Vein: Normal compression. Peroneal Vein: Normal compression. There is no demonstrated deep venous thrombosis. US/Venous Duplex Imag/Black Extrem IMPRESSION: No visualized DVT of the bilateral lower extremities. Shadowing calcific abnormalities is seen in the right calf at the area of a palpable abnormality may represent superficial vascular calcifications however they are not well assessed examination. Diffuse calf edema bilaterally. Electronically Signed: Ravi Enriquez, at 18:09 EDT Tel , Service support ,
[2019-10-11 17:20] LABS: Absolute Lymphocyte Count 0.71 X10^3/uL (0.83-4.51); Absolute Neutrophil Count 5.8 X10^3/uL (2.0-7.7); Basophil# 0.07 X10^3/uL; Basophil% 0.9 % (0-1); Eosinophils% 1.3 % (0-5); Hematocrit 42.6 % (40-54); Hemoglobin 14.2 g/dL (13.0-16.5); Lymphocyte # 0.71 X10^3/ul (4.0); Mean Corp Hgb Conc 33.3 g/dL (32-36); Mean Corpuscular Hgb 33.7 pg (27.0-32.0); Mean Corpuscular Volume 101.2 fL (80-94); Mean Platelet Vol. 11.2 fl (6.2-12.0); Monocyte# 1.13 X10^3/uL; Monocyte% 14.4 % (0-10); NRBC Flagged by Analyzer 0 % (0-5); Neutrophil # 5.81 X10^3/uL (2.7-7.7); Neutrophil % 73.8 % (47-70); Platelet Count 131 K/mm3 (150-450); RBC Distribution Width CV 13.8 % (11.6-14.6); RBC Distribution Width SD 50.3 fl (35.1-43.9); Red Blood Count 4.21 M/mm3 (4.6-6.2); White Blood Count 7.9 K/mm3 (4.4-11.0)
[2019-10-11 17:32] LABS: AST(SGOT) 49 U/L (15-37); Alanine Aminotransfer ALT/SGPT 24 U/L (16-61); Albumin, Serum 2.7 g/dL (3.2-5.0); Alkaline Phosphatase 157 U/L (45-117); Anion Gap 6 (5-15); BUN 14 mg/dL (7-18); BUN/Creat Ratio 14.4 RATIO (10-20); Bilirubin, Direct 0.86 mg/dL (0.00-0.30); Calcium,Total 8.7 mg/dL (8.5-10.1); Chloride 99 mmol/L (98-107); Creatinine, Serum 0.97 mg/dL (0.70-1.30); EST Glomerular Filtration Rate 82 mL/min (>60); Est Glom Filt Rate - Afr Amer 100 mL/min (>60); Estimated Creatinine Clearance 73.45 ml/min; Globulin 4.2 g/dL (2.2-4.2); Glucose 191 mg/dL (74-106); International Normalized Ratio 1.4; Lipase 46 U/L (73-393); Partial Thromboplast Time 30.2 Seconds (24.1-36.2); Potassium 3.4 mmol/L (3.5-5.1); Protein, Total 6.9 g/dL (6.4-8.2); Prothrombin Time (Protime)PT. 16.2 SECONDS (11.7-14.9); Sodium Level 135 mmol/L (136-145)
--- NOTE | 2019-10-11 17:46 | RAD_ITS ---
STUDY: X-RAY CHEST REASON FOR EXAM: Male, 64 years old. Left leg edema, abdomen swelling TECHNIQUE: Single frontal view of the chest. COMPARISON: 06/01/2019. FINDINGS: Cardiac silhouette unremarkable. Pulmonary vascularity increased. Aorta unremarkable. No focal airspace opacities. No pleural effusions. Low lung volumes. Upper abdomen unremarkable. Osseous structures intact. No pneumothorax. RAD/Chest 1 View (Portable) IMPRESSION: Low lung volumes may accentuate pulmonary vascular markings which are prominent on this examination and may indicate an element of pulmonary edema.. Electronically Signed: Ravi Enriquez, at 18:24 EDT Tel , Service support ,
[2019-10-11 18:19] VITALS: BP 118/80; PULSE 73; RESP 18; O2SAT 98
[2019-10-11 18:30] LABS: Alcohol, Blood (Medical)-Serum < 3.0 mg/dL
--- NOTE | 2019-10-11 18:52 | US_ITS ---
We are attempting to reach an attending provider to discuss findings. An addendum with communication details will be sent when the communication is complete. STUDY: ABDOMINAL ULTRASOUND REASON FOR EXAM: Male, 64 years old. ABD PAIN TECHNIQUE: Transabdominal ultrasound was performed with real-time and static pollack scale imaging. TECHNICAL QUALITY: Adequate. COMPARISON: None. FINDINGS: Aorta: Visualized portions of abdominal aorta are normal in diameter. IVC: Visualized portions appear patent. Pancreas: Not well-visualized. Liver: Measures 16.2 cm. Liver shows increased echogenicity. Cirrhotic. No liver masses identified. Gallbladder: No stones. Mild to moderate wall thickening. Negative sonographic Victor''s sign. Multiple gallstones are identified. Common bile duct: Measures 4 mm. No intraductal stones identified. Right kidney: Measures 12.1 cm in length. Normal contour. No cysts. No masses, stones, or hydronephrosis identified. Renal cortical thickness appears normal. Additional findings: None of significance. US/Abdomen Limited IMPRESSION: Ascites and cirrhosis. Dependent gallstones. Mild gallbladder wall thickening. Negative sonographic Victor''s sign. Correlate clinically to exclude cholecystitis. Electronically Signed: Ravi Enriquez, at 20:44 EDT Tel , Service support ,
[2019-10-11 19:31] LABS: Bacteria 0 SEEN /hpf (None Seen); Mucous, Urine 0 SEEN /hpf (<or=2+); Red Blood Cells-Urine 0 SEEN /hpf (0-5); Squamous Epithelial Cells - UA 0 SEEN /hpf (0-5); White Blood Cells 0 SEEN /hpf (0-5)
[2019-10-11 19:33] LABS: Color, Urine Amber (Yellow); Glucose, Dipstick Normal (Normal); Ketone-Dipstick 5 mg/dl (Negative); Leukocyte Esterase-Dipstick 25 /ul (Negative); Nitrite-Dipstick Negative (Negative); Occult Blood-Urine 10 /ul (Negative); Protein-Dipstick 15 mg/dl (Negative); Specific Gravity, Urine 1.015 (1.002-1.030); Urine Clarity Clear (Clear); Urine Urobilinogen 8 mg/dl (Normal)
[2019-10-11 19:40] LABS: Urine Bilirubin Dipstick 1 mg/dL (Negative)
[2019-10-11 22:17] VITALS: BP 113/73; PULSE 66; RESP 16; TEMP 35.9; O2SAT 94
[2019-10-12 01:00] VITALS: BP 133/70; PULSE 65; RESP 16; O2SAT 96
== END 2019-10-12 01:12 | disposition short-term general hospital (02) ==
PROVIDERS: Emergency Provider Emergency Medicine; PCP Family Medicine
DX: K74.60 Unspecified cirrhosis of liver (principal); R18.8 Other ascites; M79.89 Other specified soft tissue disorders; E11.9 Type 2 diabetes mellitus without complications; K21.9 Gastro-esophageal reflux disease without esophagitis; I10 Essential (primary) hypertension; I48.91 Unspecified atrial fibrillation; K80.20 Calculus of gallbladder without cholecystitis without obstruction; Z79.4 Long term (current) use of insulin; Z79.899 Other long term (current) drug therapy
CPT/HCPCS: 71045; 74177; 76705; 80048; 80076; 80320; 81001; 83690; 85025; 85610; 85730; 93005; 93970; 99285; Q9967; A4216; G0480

== ENCOUNTER 2019-11-03 14:24 | Emergency (ER) | payer MEDICARE, MEDICAID, SELFPAY ==
[2019-11-03 14:26] VITALS: BP 148/86; PULSE 74; RESP 16; TEMP 37.1; O2SAT 97; BMI 35.1
--- NOTE | 2019-11-03 14:42 | US_ITS ---
PROCEDURE: Ultrasound guided paracentesis. DATE OF EXAMINATION: 11/03/2019. INDICATION: Male, 64 years old. Ascites. PHYSICIAN: Mak Scott M.D. TECHNIQUE: The risks, benefits, and alternatives to the procedure were explained to the patient. The specific risks of bleeding, infection, and damage to bowel were detailed and accepted. Witnessed informed consent was obtained. The abdomen was ultrasonographically surveyed. An appropriate pocket of fluid was identified at the right lower quadrant. The skin were cleaned and prepped in the usual sterile fashion. Using ultrasound guidance, the peritoneal cavity was accessed with a 5-Samoan paracentesis needle/catheter system. The trocar was removed. A total of 8000 ml of jesus-colored fluid were removed from the peritoneal cavity. The catheter was removed and a sterile dressing was applied. The procedure was well tolerated. US/Paracentesis with US IMPRESSION: Ultrasound guided paracentesis. Electronically Signed: Mak Scott, at 16:08 EDT , Service support ,
--- NOTE | 2019-11-03 14:43 | ED.VISSUMM ---
- ER Visit Summary Date of Service: 11/03/19 Chief Complaint: [Abdominal pain] History of Present Illness: The patient is a 64 M [resents to the emergency department complaint of abdominal pain for about a day and a half now. Patient complains of a lot of distention. Patient states he has history of cirrhosis of the liver with ascites and 3 weeks ago had 15 L taken off his abdomen. Patient denies any fever. He denies any vomiting. Denies recent illness. Patient has history of GERD, diabetes, hypertension, high cholesterol, depression, and cirrhosis of the liver.] Physical Examination: [HEENT-PERRLA, EOMI. Cranial nerves II through XII grossly intact. TMs clear. Mucous membranes moist. No adenopathy. Cardiovascular-regular rate and rhythm without murmur or ectopy Lungs-clear to auscultation, chest wall stable without crepitus or subcu emphysema Abdomen-normoactive bowel sounds. The abdomen is distended. Abdomen has a fluid wave. No significant discomfort on palpation. Extremities-intact ?4, normal range of motion, normal pulses, atraumatic] Test Results: [CBC with differential obtained showed a white count 5.8, hemoglobin 13, hematocrit 41, plates 122. Chemistries unremarkable. Total bili was 1.7, alk phos 152, ALT 22 and AST was 40. INR was 1.3 and PTT was 20.5.] Emergency Department Course and Treatment: [ Established on arrival. Case was discussed with radiology and I ordered a paracentesis to be done. Patient was seen by radiology and had 8 L of fluid removed from the abdomen. On repeat evaluation in the emergency department patient's abdominal pain is resolved and he states that this is the best he is ever felt. Patient is unsure what the plan was regarding his cirrhosis and ascites going forward but states that his PCP is working on it.] Treatment Plan: [Follow-up with primary care physician 3 to 5 days.] Disposition: [Discharged home in stable condition] Impression: [Abdominal pain-resolved Ascites status post paracentesis by radiology] This note was generated with [employer] software. It may contain incorrect words, spelling, and punctuation that were not noted in review of the chart prior to signing ED Disposition - Plan for ED Patient: Referrals: Khang Mendoza MD [Primary Care Provider] -
[2019-11-03 15:31] LABS: Absolute Lymphocyte Count 0.71 X10^3/uL (0.83-4.51); Absolute Neutrophil Count 4.1 X10^3/uL (2.0-7.7); Basophil# 0.06 X10^3/uL; Eosinophil# 0.09 X10^3/uL; Eosinophils% 1.6 % (0-5); Hematocrit 40.7 % (40-54); Hemoglobin 13.3 g/dL (13.0-16.5); Lymphocyte # 0.71 X10^3/ul (4.0); Lymphocyte % 12.3 % (19-41); Mean Corp Hgb Conc 32.7 g/dL (32-36); Mean Corpuscular Hgb 32.8 pg (27.0-32.0); Mean Corpuscular Volume 100.5 fL (80-94); Mean Platelet Vol. 11.3 fl (6.2-12.0); Monocyte# 0.82 X10^3/uL; Monocyte% 14.2 % (0-10); NRBC Flagged by Analyzer 0 % (0-5); Neutrophil # 4.07 X10^3/uL (2.7-7.7); Neutrophil % 70.6 % (47-70); Platelet Count 122 K/mm3 (150-450); RBC Distribution Width CV 13.2 % (11.6-14.6); RBC Distribution Width SD 48.5 fl (35.1-43.9); Red Blood Count 4.05 M/mm3 (4.6-6.2); White Blood Count 5.8 K/mm3 (4.4-11.0)
[2019-11-03 15:37] LABS: International Normalized Ratio 1.3; Prothrombin Time (Protime)PT. 15.2 SECONDS (11.7-14.9)
[2019-11-03 15:38] LABS: Partial Thromboplast Time 28.5 Seconds (24.1-36.2)
[2019-11-03 15:41] LABS: ALB/GLOB Ratio 0.7 RATIO (0.9-2.4); AST(SGOT) 40 U/L (15-37); Alanine Aminotransfer ALT/SGPT 22 U/L (16-61); Albumin, Serum 2.9 g/dL (3.2-5.0); Alkaline Phosphatase 152 U/L (45-117); Anion Gap 5 (5-15); BUN 17 mg/dL (7-18); Calcium,Total 8.9 mg/dL (8.5-10.1); Chloride 99 mmol/L (98-107); Creatinine, Serum 1.06 mg/dL (0.70-1.30); EST Glomerular Filtration Rate 74 mL/min (>60); Est Glom Filt Rate - Afr Amer 90 mL/min (>60); Estimated Creatinine Clearance 67.22 ml/min; Globulin 4.1 g/dL (2.2-4.2); Glucose 247 mg/dL (74-106); Potassium 3.8 mmol/L (3.5-5.1); Sodium Level 135 mmol/L (136-145)
[2019-11-03 16:02] VITALS: BP 144/83; BP 144/99; BP 145/84; PULSE 72; RESP 16; RESP 19; RESP 20; O2SAT 96; O2SAT 97
--- NOTE | 2019-11-03 16:17 | ED.DEP ---
ED Disposition - Plan for ED Patient: Instructions: Paracentesis, ED Ascites Referrals: Khang Mendoza MD [Primary Care Provider] - 3-5 Days
[2019-11-03 16:39] VITALS: PULSE 84; RESP 18; O2SAT 99
--- NOTE | 2019-11-04 09:36 | NURSING ---
Notes from phone calls with the following offices this morning: Dr Weems, [facility], nurse at Dr. Mendoza's office This pt has alcoholic cirrhosis; states he stopped drinking last month. On 10/11 he was transferred from here to [facility], had an EGD and his first para up there, where they took off 15L. The doctor who did the EGD was Dr. Weems from the [facility] group [phone]. On 10/26, she or the office reviewed with the patient, sounded like via phone, his EGD results. The patient told them that he would follow up with his PCP on Thursday about his recent 8 lbs wt gain. The office was agreeable to this and just informed him that he would need to follow-up with [facility] for a repeat EGD in one year. The patient did tell this nurse that he saw Diandra Noel at the [facility] on Monday 10/30. He stated that she was going to look into his follow up plan. The patient then presented to ED yesterday for abd pain r/t his ascites. This RN called the [facility] this morning, but had to leave a voicemail. Looking at his [facility] records, he at some point listed Kelly as his PCP. This RN called his office this morning, and Lucie, a nurse, states that he was last seen in 2016 and has had several appts since to re-establish, but has cancelled all of them. He does however have an appt on 11/24 with Kelly. This RN then called the patient to discuss this and reinforce that keeping that appt with Kelly is very important, but had to leave a voicemail. The patient states he lives alone in [place]. He does state that his brother lives just down the street, and he does have his own transportation. This information communicated to Case Management, Sara Reynaga.
== END 2019-11-03 16:39 | disposition home or self-care (01) ==
LOC: ED 14:48
PROVIDERS: Emergency Provider Emergency Medicine; PCP Family Medicine
DX: R18.8 Other ascites (principal); K74.60 Unspecified cirrhosis of liver; E11.9 Type 2 diabetes mellitus without complications; K21.9 Gastro-esophageal reflux disease without esophagitis; I10 Essential (primary) hypertension; E78.00 Pure hypercholesterolemia, unspecified; F32.9 Major depressive disorder, single episode, unspecified; Z79.4 Long term (current) use of insulin; Z79.899 Other long term (current) drug therapy
CPT/HCPCS: 49083; 80053; 85025; 85610; 85730; 99283; A4216

== ENCOUNTER 2019-11-25 13:02 | Emergency (ER) | payer MEDICARE, MEDICAID, SELFPAY ==
[2019-11-25 13:03] VITALS: BP 130/92; PULSE 70; RESP 17; TEMP 37; O2SAT 98; BMI 34.9
[2019-11-25 13:53] LABS: Absolute Lymphocyte Count 0.62 X10^3/uL (0.83-4.51); Absolute Neutrophil Count 5.2 X10^3/uL (2.0-7.7); Basophil# 0.06 X10^3/uL; Basophil% 0.9 % (0-1); Eosinophil# 0.09 X10^3/uL; Eosinophils% 1.3 % (0-5); Hematocrit 39.4 % (40-54); Lymphocyte # 0.62 X10^3/ul (4.0); Lymphocyte % 8.8 % (19-41); Mean Corpuscular Hgb 32.7 pg (27.0-32.0); Mean Platelet Vol. 10.6 fl (6.2-12.0); Monocyte# 1.06 X10^3/uL; NRBC Flagged by Analyzer 0 % (0-5); Neutrophil # 5.19 X10^3/uL (2.7-7.7); Neutrophil % 73.6 % (47-70); Platelet Count 141 K/mm3 (150-450); RBC Distribution Width CV 15.3 % (11.6-14.6); RBC Distribution Width SD 55.2 fl (35.1-43.9); Red Blood Count 3.98 M/mm3 (4.6-6.2); White Blood Count 7.1 K/mm3 (4.4-11.0)
[2019-11-25 14:05] LABS: International Normalized Ratio 1.3; Prothrombin Time (Protime)PT. 15.9 SECONDS (11.7-14.9)
[2019-11-25 14:06] LABS: Partial Thromboplast Time 27.3 Seconds (24.1-36.2)
[2019-11-25 14:07] LABS: ALB/GLOB Ratio 0.6 RATIO (0.9-2.4); AST(SGOT) 31 U/L (15-37); Alanine Aminotransfer ALT/SGPT 17 U/L (16-61); Albumin, Serum 2.7 g/dL (3.2-5.0); Alkaline Phosphatase 141 U/L (45-117); Anion Gap 6 (5-15); BUN 11 mg/dL (7-18); BUN/Creat Ratio 11.9 RATIO (10-20); Calcium,Total 8.9 mg/dL (8.5-10.1); Chloride 99 mmol/L (98-107); Creatinine, Serum 0.92 mg/dL (0.70-1.30); EST Glomerular Filtration Rate 87 mL/min (>60); Est Glom Filt Rate - Afr Amer 106 mL/min (>60); Estimated Creatinine Clearance 77.45 ml/min; Globulin 4.2 g/dL (2.2-4.2); Glucose 204 mg/dL (74-106); Potassium 3.6 mmol/L (3.5-5.1); Protein, Total 6.9 g/dL (6.4-8.2); Sodium Level 135 mmol/L (136-145)
--- NOTE | 2019-11-25 14:08 | US_ITS ---
PROCEDURE: Ultrasound guided paracentesis. DATE OF EXAMINATION: 11/25/2019. INDICATION: Male, 64 years old. Ascites. PHYSICIAN: Mak Scott M.D. TECHNIQUE: The risks, benefits, and alternatives to the procedure were explained to the patient. The specific risks of bleeding, infection, and damage to bowel were detailed and accepted. Witnessed informed consent was obtained. The abdomen was ultrasonographically surveyed. An appropriate pocket of fluid was identified at the right lower quadrant. The skin were cleaned and prepped in the usual sterile fashion. Using ultrasound guidance, the peritoneal cavity was accessed with a 5-Moroccan paracentesis needle/catheter system. The trocar was removed. A total of 8000 ml of jesus-colored fluid were removed from the peritoneal cavity. The catheter was removed and a sterile dressing was applied. The procedure was well tolerated. US/Paracentesis with US IMPRESSION: Ultrasound guided paracentesis. Electronically Signed: Mak Scott, at 15:30 EDT , Service support ,
[2019-11-25 14:49] VITALS: BP 128/72; BP 130/80; BP 140/82; BP 146/84; PULSE 68; PULSE 70; RESP 18; TEMP 36.4; O2SAT 98; O2SAT 99
--- NOTE | 2019-11-25 15:51 | ED.VISSUMM ---
- ER Visit Summary Date of Service: 11/25/19 Chief Complaint: Abdominal pain History of Present Illness: The patient is a 64 M who goes to the [facility] clinic. He reports that he was diagnosed with cirrhosis approximately 3 months ago. He quit drinking at this time. He has had paracentesis twice since then. The last 1 of these was 3 weeks ago. He reports that over the past 2 days he has a stretching, burning pain to his abdomen that is 8 out of 10 at worst 5-10 currently. It is worsened by nothing and relieved by sitting in a recliner. He reports that the swelling makes him mildly short of breath. Patient denies any fever, chills, chest pain, cough. No nausea, vomiting, diarrhea. No dysuria or frequency. Physical Examination: Vitals: Stable. Afebrile. General: Well-nourished and well-developed. Head: Normocephalic atraumatic. Neck: Supple, no lymphadenopathy. No JVD. Nontender. Cardiovascular: Regular rate and rhythm. No murmurs. Respiratory: No respiratory distress. Clear to auscultation bilaterally. Abdominal: Soft, mild diffuse tenderness palpation with obvious ascites causing distention. He has normal bowel sounds. No guarding, rebound, or peritoneal signs. Back: Nontender. Extremities: Nontender, 2+ edema lower extremities bilaterally. Skin: Normal color, no rash. Neurologic: Alert and oriented ?3. Cranial nerves II through XII are intact. Normal strength and sensation. Psych: Normal affect. Test Results: Patient had a CBC that shows a hematocrit 39.4, segmented for 74, lymphocytes 9, monocytes 15. Chem-7 shows a sodium 135 and glucose 204. LFTs show an albumin of 2.7, total bili 2.1, alk phos 141. INR is 1.3. PTT is 27.3. Emergency Department Course and Treatment: Patient had paracentesis under ultrasound guidance done by Dr. Edmondson. He had 5 L of fluid removed. He was given 50 g of albumin IV. Patient was seen by case management to help him arrange outpatient paracentesis in the future. Treatment Plan: Patient be discharged with instructions to follow-up with [facility] in 3 to 5 days for another exam. To schedule another outpatient paracentesis. Return to the emergency department for any worsening symptoms. Disposition: To home in improved and stable condition. Impression: 1. Cirrhosis. 2. Paracentesis by radiology. 3. Ascites. This note was generated with RotaryView dictation software. It may contain incorrect words, spelling, and punctuation that were not noted in review of the chart prior to signing ED Disposition - Plan for ED Patient: Instructions: Paracentesis, Paracentesis, ED Ascites Referrals: Elizabeth Cox [Primary Care Provider] - 3-5 Days
[2019-11-25] MEDS: Albumin Human 25% (100 mL) 25 GM/100 ML BAG IV ×2 (16:14→17:55)
--- NOTE | 2019-11-25 16:59 | CASEMGMT ---
RN Care Coordination Assessment: Pt is a 64yo male with co-morbidities including cirrhosis w/ascites, DM type II, HTN, pancytopenia, hyponatremia, GERD, depression, high cholesterol, and hx of alcohol abuse. Pt was met in the ED. The role of the RN MK was explained to patient and he expressed understanding. The following was obtained through a medical record review and [id number] assessment completed at bedside. Providers: PCP: Diandra MCKEON ([facility]) Pt denies seeing any other specialists. Hospitalizations and Outpt Visits: 06/01/19 - 06/04/2019: [facility] Inpt stay for syncope 10/11/2019: ED visit for cirrhosis w/ascites with transfer to [facility] for hepatology/GI evaluation. 15L of ascitic fluid reported to have been removed. 11/03/2019: ED visit for abd pain w/ascites. Paracentesis performed with 8L of fluid removed. Insurance: [facility] and [facility] [place] Prescription Coverage: Yes Pharmacy: [facility] Diet: High protein, low Na Fluid intake: Drinks 1 cup of coffee, 3-4 cups of water, and 1 cup of milk each day. Pt describes a cup as being smaller than the coffee cup he was currently holding which appeared to be a 12 oz cup. ADLS: Pt is independent with his ADLs. States his brother does assist him with household tasks when needed. States his brother mowed the lawn the other day. DME: Pt states he has a shower chair, cane, walker, and recently got a raised toilet seat that includes grab bars. Also has a medical alert button. His [id number] has a wheelchair he could use if he needed it. [facility]: Pt has had this in the past but not currently. The name of the provider is not known. Living Will/HCPOA: Pt states he has not completed these documents but that he would want his brother Javier to be his HPOA. Pt also described his understanding of resuscitation and states that in his condition that he would not want that. Will follow-up with [employer] for completion of these forms. Social Determinants of Health: Health Literacy: Low Finances: Pt has [facility]. No concerns expressed at this time but may need to evaluate in the future as appropriate. Housing: Pt lives alone in a single story home which he and his brother own. There are 5 steps to enter and 13 to get into the basement. His shower and laundry are in the basement. The first floor bathroom has a tub only. Food: Pt prepares his own meals without difficulty. Pt drives himself or is transported by friends and/or family to obtain groceries. Pt states he tries to eat a lot of meat and watches his Na intake. Transportation: Pt states he has a truck but the brakes are currently not working. His brother or his friend Neno assist him with transportation. Social Support: Pt's brother lives less than a 1/4 of a mile down the road from him. His brother is supportive. Pt's brother is 67yo and physically active and well and works apartment locator. Pt also has a friend Neno who recently retired and is available to assist him as needed. Pt also has many nieces and nephews. Alcohol misuse: Pt states he no longer drinks ETOH. Current Plan of Care: None. Pt states he understands that he is to follow-up with his provider and states he has been trying to call people but he has been unable to obtain an appointment. Pt mentioned being in [place]. He is unable to state who he has tried to contact. In discussing transportation, pt mentions briefly that hospice stated they could provide him a ride once a month. When asked further about hospice, pt states they wanted to tell him how they could help him. Explained to patient the expected process of obtaining a routine order from a physician to state the frequency of the paracenteses and that this would allow them to be scheduled on a regular basis and prevent urgent needs. Pt states he understands and that he was trying. This RN MK attempted to contact the [facility] and [facility] to discuss the plan of care. Voicemails received at both providers and messages left requesting a return call. This RN MK will follow-up on Thursday, 11/27 to determine plan going forward. Naomi Reynaga RN CM
[2019-11-25 17:11] VITALS: BP 122/75; PULSE 76; RESP 14; O2SAT 98
[2019-11-25 20:14] VITALS: BP 135/77; PULSE 68; RESP 16; O2SAT 98
--- NOTE | 2019-11-28 15:29 | CASEMGMT ---
RN Care Coordination Follow-up: This AM, calls placed to [facility] (message left for nurse Neelam) and [facility]. This RN CM spoke with Gerda at [facility] who states they had received a referral for pt from [facility]. [facility] has not yet visited pt and when contacted last week pt states he was filling with fluid and needed to be drained which they instructed him to present for. Affirmed with Gerda that the pt had returned home after his ED visit. She was going to contact pt. Return call received from Neelam at [facility] with message stating pt would be following with hospice going forward and they did not expect to be further involved. Spoke with [facility] who states they received a referral from pt's insurance company and one of the [employer]'s had visited pt on 11/22 and a social problems specialist had visited him on 11/23. Between those two visits, it was determined that pt was hospice appropriate. They referred pt to [facility] on 11/24. A second conversation was had this afternoon with Gerda from [facility]. She had contacted pt and arranged for a telephone conference with pt for tomorrow 11/28 at 1030 and that a nurse would visit to complete an assessment afterwords. Discussed with Gerda that the pt had stated he would want his brother to assist with decisions if needed although HPOA papers have not been completed. Given pt's low health literacy and this statement, recommended pt's brother Doug be involved with conversations and future planning initiatives. Gerda was going to call Doug re: being present/included on tomorrow AM's conference call. For coordination of care, pt's DC summary, ED visit summaries, paracenteses reports, RN CM assessment, and facesheet were faxed to Gerda. Gerda states they will evaluate for future paracentesis needs and provide orders accordingly. Naomi Reynaga RN CM
== END 2019-11-25 20:15 | disposition home or self-care (01) ==
PROVIDERS: Emergency Provider Emergency Medicine
DX: R18.8 Other ascites (principal); K74.60 Unspecified cirrhosis of liver; E11.9 Type 2 diabetes mellitus without complications; I10 Essential (primary) hypertension; Z87.891 Personal history of nicotine dependence
CPT/HCPCS: 49083; 80053; 85025; 85610; 85730; 96365; 96366; 99281; 99285; P9047; A4216

== ENCOUNTER 2019-12-13 11:12 | Day surgery (SDC) | payer MEDICARE, MEDICAID, SELFPAY ==
[2019-12-09 13:26] VITALS: BMI 34.2
[2019-12-09 14:38] LABS: Hematocrit 39.2 % (40-54); Hemoglobin 12.9 g/dL (13.0-16.5); Mean Corp Hgb Conc 32.9 g/dL (32-36); Mean Corpuscular Hgb 32.7 pg (27.0-32.0); Mean Corpuscular Volume 99.2 fL (80-94); Mean Platelet Vol. 10.5 fl (6.2-12.0); Platelet Count 141 K/mm3 (150-450); RBC Distribution Width CV 15.3 % (11.6-14.6); RBC Distribution Width SD 56.4 fl (35.1-43.9); Red Blood Count 3.95 M/mm3 (4.6-6.2); White Blood Count 7.4 K/mm3 (4.4-11.0)
[2019-12-09 14:47] LABS: International Normalized Ratio 1.3; Prothrombin Time (Protime)PT. 15.2 SECONDS (11.7-14.9)
[2019-12-13] VITALS (9 sets, daily range): BP systolic 101–141; BP diastolic 63–92; PULSE 60–63; RESP 16; TEMP 36.2–36.7; O2SAT 96–100; BMI 35.5
--- NOTE | 2019-12-13 01:00 | HP_ITS ---
Intake Vital Signs 12/09/19 Height 5 ft 8 in 12/09/19 Weight: 225 lb 12/09/19 BP 120/80 12/09/19 Blood Pressure Location Rt brachial 12/09/19 Position Sitting 12/09/19 Respiration 18 Intake Visit Reasons: PLEURX DRAIN PLACEMENT Chief Complaint: pleurex drain Attraction Worker Required: No Is patient in pain?: Yes (abdominal pain) Allergies metformin Adverse Reaction (Verified 12/09/19 13:27) EDEMA Medications albuterol sulfate 90 mcg/actuation aerosol inhaler 2 puff INHALATION Q4H PRN g 08/10/19 [History Confirmed 11/03/19] gabapentin 300 mg capsule 300 mg PO TID 08/10/19 [History Confirmed 11/03/19] omeprazole 20 mg capsule,delayed release 20 mg PO DAILY 08/10/19 [History Confirmed 11/03/19] pravastatin 10 mg tablet 10 mg PO DAILY 08/10/19 [History Confirmed 11/03/19] Magnesium Oxide [Mag-Ox 400] 400 mg PO BID 10/11/19 [History Confirmed 11/03/19] Thiamine Hydrochloride [Vitamin B1] 100 mg PO DAILY 10/11/19 [History Confirmed 11/03/19] Potassium Chloride 10 meq PO DAILY 11/03/19 [History Confirmed 11/03/19] fluoxetine 20 mg capsule 40 mg PO DAILY cap 12/09/19 [History] furosemide 20 mg tablet 40 mg PO DAILY tab 12/09/19 [History] glimepiride 4 mg tablet 4 mg PO DAILY 12/09/19 [History Confirmed 12/09/19] insulin glargine 100 unit/mL (3 mL) subcutaneous pen 35 unit SC QHS ml 12/09/19 [History] propranolol 60 mg tablet 80 mg PO DAILY tab 12/09/19 [History] spironolactone 50 mg tablet 50 mg PO DAILY 12/09/19 [History Confirmed 12/09/19] PFS Medical History Alcoholism (Acute) Repeated falls (Acute) Type 2 diabetes mellitus with hyperglycemia (Acute) Surgical History History of umbilical hernia repair (Acute) Social History (Updated 12/09/19 @ 14:[address] Lopez Javed MD) Smoking Status: Former smoker alcohol intake: never HPI HPI HPI: ATIF DIA, is a 64 M who presents to the office today for HPI HPI Surgical H&P: Yes HPI: ATIF DIA, is a 64 M who presents to the office today for cirrhosis due to ascites. The patient was sent here by hospice for a Pleurx catheter in the abdomen for drainage ROS General General: Yes weight change and fatigue Endo Endocrine: Yes diabetes mellitus Musc Musculoskeletal: Yes back problems and arthritis Cardio Cardiovascular: Yes murmur and heart disease; no pacemaker, atrial fibrillation, high blood pressure, heart attack, heart stent, palpitations, shortness of breat with exertion or chest pain Psych Psychiatric: No depression or anxiety Resp Respiratory: Yes shortness of breath, No sleep apnea, No cough, No COPD, No asthma, No emphysema, No wheezing Gastro Gastrointestinal: Yes abdominal pain, No nausea or vomiting, No diarrhea, No constipation, No blood in stool, No acid reflux, No hemorrhoids, No ulcers, No gallbladder problem, No black,tarry stools [place] Hematologic: No blood thinners Exam Const General: cooperative Orientation: alert, oriented x3 Resp Effort & Inspection: normal respiratory effort Auscultation: clear to auscultation bilaterally Cardio Rate: regular rate Rhythm: regular rhythm Heart Sounds: murmur GI Inspection: distended Palpation: soft, nontender, ascites Assessment & Plan Problems 1. Cirrhosis of liver with ascites, unspecified hepatic cirrhosis type K74.60; R18.8 Plan The patient has uncontrolled ascites due to cirrhosis and is in hospice care. He was sent here for a Pleurx catheter in the abdomen for drainage. I discussed this with him as well as the risks of bleeding and infection. The patient would like to proceed. I will order labs today including coagulation panel. As long as labs are in order I will schedule him next week for Pleurx catheter placement into the abdomen. Lopez Javed MD Pager: [facility] [address] [place] [address], [address] [place] [address] Office: Orders Orders: Prothrombin Time w/INR Today K74.60 CBC-Complete Blood Cnt No Diff Today K74.60 Coding Level of Care Code Off vis,new,level 3 Diagnoses Cirrhosis of liver with ascites, unspecified hepatic cirrhosis type K74.60; R18.8 ??Hepatic cirrhosis type: unspecified hepatic cirrhosis
[2019-12-13] MEDS: Lactated Ringers 1,000 ML 100 ML IV (11:58)
[2019-12-13 12:05] LABS: Bedside Glucose 105 mg/dL (70-110)
[2019-12-13] MEDS: Cefazolin 2 GM in 0.9% Normal Saline 100 ML IV (13:03)
--- NOTE | 2019-12-13 13:52 | PCM.OPRPT ---
Problem List (1) Ascites Status: Acute Qualifiers: Ascites type: due to alcoholic cirrhosis Qualified Code(s): K70.31 - Alcoholic cirrhosis of liver with ascites Report of Operation Date of Procedure: 12/13/19 Pre-Operative Diagnosis: Ascites due to cirrhosis Post-Operative Diagnosis: Same Surgery/Procedure Performed:: Ultrasound-guided Pleurx catheter placement into the peritoneal cavity Description of Procedure: The patient was brought back to the operating room and the right flank was prepped and draped in usual sterile fashion. The ultrasound was used to find a pocket of fluid and the skin overlying the fluid was anesthetized. 2 small nicks were made with scalpel and the upper incision a needle was placed under ultrasound guidance into the fluid collection and straw-colored fluid was aspirated. A guidewire was placed through the needle and it was removed. The peel-away sheath was replaced over the guidewire and the guidewire was removed. Next the tunneler was placed onto the catheter and was placed from the lower incision to the upper incision making a tunnel. The catheter was then placed into the peel-away sheath and the peel-away sheath was removed. The catheter was then connected to suction. The upper skin incision was closed with absorbable 4-0 suture and the catheter was sutured to the skin. Glue was applied to the upper incision. Dressing was applied. 7 L of straw-colored fluid was aspirated from the abdomen and then the catheter was capped. Patient tolerated the procedure well and blood pressure was stable. Patient was taken to PACU in stable condition. - Admit VTE Documentation VTE Mechan Device Prophylaxis: SCD's
--- NOTE | 2019-12-13 14:08 | PCM.DC ---
- Discharge Diagnoses Current Active Problems: Current Active and Chronic Problems (Last Reviewed 12/09/19 @ 13:25 by Ranjana Navarro) Ascites (Acute) You will use the following diet at home:: Regular Discharge Activity: Return to Normal Activity, May Shower Call your doctor if your incision/area has: Continuous Slow Oozing, Sudden Increased Bleeding, Increased Pain/ Swelling, Foul Smelling Discharge, Swelling at the incision site Call your doctor if you observe: Fever of 101 or Higher Allergies/Adverse Reactions: Allergies metformin Adverse Reaction (Verified 12/13/19 11:37) EDEMA Medications to take at Discharge albuterol sulfate 90 mcg/actuation aerosol inhaler 2 puff INHALATION Q4H PRN g 08/10/19 gabapentin 300 mg capsule 300 mg PO TID 08/10/19 omeprazole 20 mg capsule,delayed release 20 mg PO DAILY 08/10/19 pravastatin 10 mg tablet 10 mg PO DAILY 08/10/19 Magnesium Oxide [Mag-Ox 400] 400 mg PO BID 10/11/19 Thiamine Hydrochloride [Vitamin B1] 100 mg PO DAILY 10/11/19 Potassium Chloride 10 meq PO DAILY 11/03/19 fluoxetine 20 mg capsule 40 mg PO DAILY cap 12/09/19 furosemide 20 mg tablet 40 mg PO DAILY tab 12/09/19 glimepiride 4 mg tablet 4 mg PO DAILY 12/09/19 insulin glargine 100 unit/mL (3 mL) subcutaneous pen 35 unit SC QHS ml 12/09/19 propranolol 60 mg tablet 80 mg PO DAILY tab 12/09/19 spironolactone 50 mg tablet 50 mg PO DAILY 12/09/19 Insulin Glargine,Hum.rec.anlog [Basaglar Kwikpen U-100] 100 unit SQ 12/12/19 Orders to be completed after discharge: COVID 19 AG RAPID (RN COLLECT) Time Frame: 12/12/19, Facility: [facility], Location: Laboratory Test Results: Test results from this visit will be discussed in further detail at your follow-up appointment, if applicable. Please Follow Up With: Lopez Javed MD When: Follow up as needed. [phone]
== END 2019-12-13 14:30 | disposition home or self-care (01) ==
LOC: SDC 11:13 → AC 11:13
PROVIDERS: Referring Provider Surgery; Visit Provider Surgery
PROC: (CPT 32550; principal; 2019-12-13 12:45)
DX: K70.31 Alcoholic cirrhosis of liver with ascites (principal); E11.65 Type 2 diabetes mellitus with hyperglycemia; I10 Essential (primary) hypertension; F17.210 Nicotine dependence, cigarettes, uncomplicated; J45.909 Unspecified asthma, uncomplicated; K21.9 Gastro-esophageal reflux disease without esophagitis; E78.00 Pure hypercholesterolemia, unspecified; Z99.81 Dependence on supplemental oxygen; Z79.4 Long term (current) use of insulin; Z79.51 Long term (current) use of inhaled steroids; Z79.899 Other long term (current) drug therapy
CPT/HCPCS: 00700; 49083; 49418; 36415; 82962; 85027; 85610; J7120; C1729